=== PATIENT | female | born 1945 | race Caucasian/White ===

== ENCOUNTER → 2019-02-21 08:55 | Outpatient (CLI) | payer OTHER, SELFPAY ==
--- NOTE | 2019-02-21 | DI.MRI.S_ITS ---
PROCEDURE: MR LUMBAR SPINE WO CON INDICATIONS: LUMBAR REGION RADICULOPATHY TECHNIQUE: Noncontrast sagittal T1 spin echo and T2 fast echo, sagittal STIR, axial T1 and T2 fast spin echo through the lumbar spine. In cases with scoliosis, additional coronal T2 fast spin echo may be performed. COMPARISON: None. FINDINGS: Image quality: Excellent. Alignment and Curvature: Mild dextroconvex scoliotic curvature is seen. Bone Marrow: Marrow is of normal overall signal. No acute vertebral body compression fractures. Spinal Cord: Conus medullaris terminates at the L1 level. Visualized cord demonstrates normal signal and size. Paraspinous Soft Tissues: No paravertebral masses. T12-L1: Normal appearance. L1-L2: Mild to moderate loss of disc height and disc signal are seen. Lisd-bf-vicyqacn disc bulge is seen. There is mild left-sided and no right-sided neural foraminal narrowing seen. No significant central canal narrowing is seen. L2-L3: Mild loss of disc height is seen. Loss of disc signal is seen. Mild to moderate disc bulge is seen. Mild facet joint hypertrophy is seen. No significant neural foraminal narrowing is seen. No significant central canal narrowing is seen. L3-L4: The disc height is well-preserved. Loss of disc signal is seen at this level. Mild to moderate disc bulge is seen. Mild facet joint hypertrophy is seen. No significant neural foraminal or central canal narrowing can be seen. L4-L5: Mild loss of disc height is seen. Loss of disc signal is seen. Fpee-dd-dcuzprxy disc bulge is seen. Pcjp-an-teytxscx facet hypertrophy is seen at this level. No significant neural foraminal narrowing is seen. Mild central canal narrowing is seen. L5-S1: Mild loss of disc height is seen. Loss of disc signal is seen. There is a focal annular fissure seen posteriorly. Mild generalized disc bulge is seen. Moderate facet joint hypertrophy is seen. No neural foraminal narrowing. No central canal narrowing. IMPRESSION: Lumbar spine degenerative changes are seen, which are most prominent at L1-L2. Mild dextroconvex scoliotic curvature is seen. Dictated by: Julio César Samuels M.D. on 02/21/2019 at 10:04 Approved by: Julio César Samuels M.D. on 02/21/2019 at 10:08
== END ==
PROVIDERS: PCP Internal Medicine; Visit Provider Orthopaedic Surgery
DX: M47.26 Other spondylosis with radiculopathy, lumbar region (principal); M41.9 Scoliosis, unspecified
CPT/HCPCS: 72146

== ENCOUNTER 2021-05-11 21:22 | Inpatient (IN) | payer OTHER, SELFPAY ==
[2021-05-11 21:30] VITALS: BMI 22.4
[2021-05-11 21:48] VITALS: BP 148/65; PULSE 74; RESP 18; TEMP 36.2; O2SAT 94
[2021-05-11 23:10] VITALS: BP 120/61; PULSE 62; RESP 18; TEMP 36.3; O2SAT 97
--- NOTE | 2021-05-11 23:51 | PC.NURSE ---
2134- Pt arrived to room 209 from [facility] via cabulance stretcher. Pt was gardening and fell, right hip Fx, Dr Schofield to perform surgery 05/12/2021 @ 0930. Pt significant other, Melanie Finn, should be here in the morning. 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 Arrived with Rt hand 22G IVP, SL and flushing well. Mckeon n place and draining clear yellow urine to gravity. allergy to codeine and macrobid. Pt received 30mg torodol, and 1mg dilaudid @ 1700, 183, and 2029 just prior to leaving . After moving pt to bed, pt with nausea and vomited clear fluid 20mL x2. provided pt with ice watr and saltine crackers per request. Pt to be NPO at midnight. Pt reports PCP Dr. Nhi Handy and has [facility] [employer]. Pt reports comfortable and sleepy. Call light in reach and bed alarm on for safety.
[2021-05-12] VITALS (20 sets, daily range): BP systolic 91–115; BP diastolic 47–92; PULSE 63–74; RESP 12–18; TEMP 36–37.1; O2SAT 91–99
--- NOTE | 2021-05-12 | DI.RAD.S_ITS ---
PROCEDURE: XR HIP W PEL IF DONE RT 2V INDICATIONS: RIGHT HIP FRACTURE TECHNIQUE: 4 operative C-arm images of the right hip acquired. COMPARISON: None. FINDINGS: Serial images demonstrate ORIF of a trochanteric hip fracture. No radiographic evidence of complications. IMPRESSION: Operative imaging utilized during ORIF of a trochanteric hip fracture. Dictated by: Josh Thorne M.D. on 05/12/2021 at 10:52 Approved by: Josh Thorne M.D. on 05/12/2021 at 10:53
[2021-05-12] MEDS: LACTATED RINGERS 1,000 ML 60 ML IV (00:57)
[2021-05-12] MEDS: ONDANSETRON 4 MG/2 ML INJ IV ×2 (01:02→04:59)
[2021-05-12] MEDS: HYDROMORPHONE 1 MG INJ IV ×2 (01:12→04:59)
[2021-05-12] MEDS: SODIUM CHLORIDE 0.9% FLUSH 10 ML IV ×2 (01:13→08:08)
--- NOTE | 2021-05-12 03:12 | P.HP_ITS ---
History of Present Illness History of Present Illness Date Patient Seen: 05/11/21 Time Patient Seen: 21:30 Chief complaint: RT HIP FRACTURE Narrative: Patient is a nesha 75-year-old female Libby Gupta, who presented to [facility] ED for right hip. Patient was up on a 2 step stool (approx 3 feet) working on her lilac-the stool gave way and she fell onto her right hip and right shoulder. She was unable to move her hip and required EMS assistance to get off the ground, had severe pain, and denied numbness or tingling, pain with movement, and was concerned for fracture. Her partner called the ambulance and brought her to the hospital. Patient's pain was not adequately managed with Toradol initially in the ED but did have pain relief with Dilaudid and Zofran. Dr. Schmitz from [facility] ED contacted our hospitalist office and stated that would be had no orthopedic services available over the weekend and had spoken with Dr. Louis who agreed to take her to surgery at [facility]. We accepted the patient and she was transferred. Patient's only medical history is glaucoma, catracts, and lichen planus. She takes Finasteride, hydroxychloroquine, miniocycline for her lichen planus, she also uses unknown drops for her glaucoma. Patient stated that she will not be taking any of her medication while she is in the hospital and that she should be fine to miss a few days. Patient denies chest pain, shortness of breath, nausea, vomiting, abdominal pain, fever, body aches, chills. Patient does complain of right leg pain 7/10. Patient is resting in bed in moderate discomfort, BP 120/61, HR 62, RR 18, sat 97% on room air. Patient's CBC is all within normal limits as is her chemistry panel the exception of a mildly elevated glucose at 1:10 a.m., lipase negative. Right Shoulder xray was negative for fracture. Right hip x-ray demonstrates commuted trochanteric fracture of the right hip with vargus angulation. Patient denies any anticoagulation. 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 Environment Been Physically Hurt or No Threatened By a Person Suicidal Ideation Description None Suicide Plan Description No Plan Tobacco & Substance use: Smoking Status smoked for approximately 6-8 years, quit over 30 years ago alcohol intake 1 cocktail every evening with her partner alcohol intake frequency daily Substance Use Type does not use Meds Home Medications and Allergies Home Medications Medication Instructions Recorded Confirmed Type ascorbate calcium (vitamin C) 500 1 gram PO DAILY tab 11/18/18 05/12/21 History mg tablet cetirizine 10 mg capsule PO cap 11/18/18 11/18/18 History cholecalciferol (vitamin D3) 25 500 unit PO DAILY cap 11/18/18 05/12/21 History mcg (1,000 unit) capsule cranberry 400 mg capsule 400 mg PO DAILY 11/18/18 05/12/21 History hydroxychloroquine 200 mg tablet 200 mg PO Q OTHER DAY tab 11/18/18 05/11/21 History (Plaquenil) vitamins A,C,Q-wssf-wgckmp 7,160 2 tab PO BID 11/18/18 11/18/18 History unit-113 mg-100 unit tablet (PreserVision AREDS) finasteride 5 mg tablet 5 mg PO DAILY 05/11/21 05/11/21 History minocycline 50 mg capsule 50 mg PO BID 05/11/21 05/11/21 History Allergies Allergy/AdvReac Type Severity Reaction Status Date / Time nitrofurantoin Allergy Anaphylaxis Verified 11/18/18 14:25 [From Macrobid] codeine AdvReac difficulty Verified 11/18/18 14:25 waking up Review of Systems Review of Systems Narrative: Patient denies any signs or symptoms other than documented in the HPI Musculoskeletal Comments: Right hip and leg pain right shoulder pain Exam Vital Signs (past 8 hours): - 05/11/21 21:48 05/11/21 23:10 05/12/21 01:05 Temperature 97.1 F L 97.4 F L Pulse Rate 74 62 Respiratory Rate 18 18 Blood Pressure 148/65 H 120/61 Pulse Oximetry 94 97 97 Oxygen Delivery Method Room Air Oxygen Flow Rate 0 Narrative Exam Narrative: General: Patient is delightful a well-developed, well-nourished female in moderate discomfort but in no distress at this time. HEENT: Normocephalic, atraumatic, extraocular muscles intact, oral pharynx is clear and mucous membranes are moist. Neck is supple and symmetric, trachea is midline, no adenopathy, no thyroid enlargement, nontender, no masses palpated. Negative for JVD Chest: Normal AP diameter and contour without kyphoscoliosis, no nasal flaring, retractions, or tachypneic labored Lungs: Auscultation of all lung rao are clear without adventitious sounds, wheezes, rhonchi, or rales. Cardio: S1 & S2 with regular rate and rhythm without murmur, rubs, or gallops, no carotid bruit, no cardiac pulsations present. Abdomen: Soft nontender, negative for organomegaly, or masses. Bowel sounds are present in all 4 quadrants without guarding or rebound, no CVA tenderness. Mckeon in place Musculoskeletal: Right leg is visibly shorter and laterally rotated, radial and pedal pulses are normal. Skin: Warm dry and intact without rashes, ulcerations or petechiae. Neuro: Alert and orientated x3, strength is +5/5 in all extremities, sensation to touch intact, no gross deficits noted of cranial nerves. Psych: Patient has a well-kept appearance, appropriate affect, mental status attitude thought context and judgment are appropriate for age. Assessment & Plan Assessment & Plan narrative: 1. Communated Trochanteric fracture of right hip with vargus angulation, pathologic, secondary to mechanical fall ( off step stool), acute, present on admission -Dr. Louis to consult and take patient to surgery tomorrow morning-he has been notified -patient NPO, vital signs q.4 hours, intake and output monitored Q shift, weight measure daily, fluids: LR at 60 cc/hr -Mckeon in place -patient on bedrest, reposition q.2 hours for comfort -manage patient's pain. 2. Malnourished as evidence by BMI of 22.4, acute on chronic present on admission -will order dietary consult. 3. Lichen planus, chronic, present on admission -patient has decided to abstain from her medications during hospitalization- Finasteride, hydroxychloroquine. miniocycline. Code status: Full code Surrogate decision maker: Partner Duarte Capone COVID PCR: Negative Pfizer COVID vaccine: Complete 2020 DVT/VTE prophylaxis: SCD only on the left leg, medication contraindicated due to surgery Expected length of stay: Longer than 2 midnight Scores GCS [place] coma scale eye opening: Spontaneous Joo coma scale verbal response: Orientated Joo coma scale motor response: Obey commands [place] coma scale total score: 15 Wells' Criteria for PE Clinical signs and symptoms of DVT: No PE is #1 Dx or equally likely: No Heart rate > 100: No Immobilization at least 3 days or surg in previous 4 weeks: No History of PE or DVT: No Hemoptysis: No Malignancy w/Treatment within 6 months or palliative: No Wells' PE Score total: 0 Quality VTE Deep Vein Thrombosis/Pulmonary Embolism Present on Admission: No MIPS - Admit I confirm the patient?s Advance Care Plan is present, Code status is documented, Surrogate decision maker is in patient?s record [If Yes, STOP here]: Yes
[2021-05-12 05:28] LABS: Add Manual Diff / Slide Review NO; Basophils Absolute Auto 0 /uL (0-100); Basophils Percent Auto 0.5 % (0-2); Eosinophils Absolute Auto 0 /uL (0-450); Hemoglobin 11.2 g/dL (12.0-16.0); Lymphocytes Absolute Auto 800 /uL (1100-4500); Lymphocytes Percent Auto 9.3 % (25-40); Mean Corpuscular HGB Conc 32.9 % (30-36); Mean Corpuscular Hemoglobin 29.7 PG (26-34); Mean Corpuscular Volume 90.2 fL (80-100); Monocytes Absolute Auto 800 /uL (0-900); Monocytes Percent Auto 9.6 % (3-14); Neutrophils Absolute Auto 6600 /uL (1500-7000); Neutrophils Percent Auto 80.6 % (50-75); Platelet Count 134 X10^3/uL (150-400); Red Blood Cell Count 3.77 X10^6/uL (4.0-5.2); White Blood Cell Count 8.1 X10^3/uL (4.5-11.0)
[2021-05-12 05:44] LABS: COVID19 - ADMIT (NP swab/PCR) Negative (Negative)
[2021-05-12 05:49] LABS: INR 1.2 (0.9-1.3); Prothrombin Time 13.1 SECONDS (10.1-12.7)
[2021-05-12 05:53] LABS: Alanine Aminotransferase 18 IU/L (<35); Albumin 3.2 g/dL (3.5-5.0); Albumin Globulin Ratio 1.2 (1.0-2.8); Alkaline Phosphatase 51 U/L (38-126); Aspartate Aminotransferase 26 IU/L (14-36); Bilirubin Total 0.6 mg/dL (0.2-1.3); Blood Urea Nitrogen 20 mg/dL (7-17); Calcium 8.8 mg/dL (8.4-10.2); Carbon Dioxide 25 mmol/L (22-32); Chloride 109 mmol/L (98-107); Estimated Glomerular Filt Rate > 60.0 mL/min (>60); Globulin 2.7 g/dL (1.7-4.1); Glucose 126 mg/dL (80-110); HEMOLYSIS < 15 (0-50); Potassium 4.4 mmol/L (3.4-5.1); Sodium 138 mmol/L (137-145); Total Protein 5.9 g/dL (6.3-8.2)
--- NOTE | 2021-05-12 07:26 | PM.PN.1 ---
Subjective Subjective Date Patient Seen: 05/12/21 Interval history: She explains to me that she was standing on a stepstool in her yard trimming her Lilac bushes when the stool became unsteady and fell, taking her down with it. Her CBC and BMP are normal. She is pending surgery this morning with Dr. Schofield. She has no significant medical history or medical problems besides her systemic medicine for Lichen Planus. Exam Vital Signs (past 8 hours): - 05/12/21 01:05 05/12/21 03:59 05/12/21 05:00 Temperature 97.1 F L Pulse Rate 64 Respiratory Rate 18 Blood Pressure 104/47 L Pulse Oximetry 97 96 96 Oxygen Delivery Method Room Air Oxygen Flow Rate 0 Narrative Exam Narrative: she is alert and oriented x3. She is in no apparent distress. Heart is regular rate and rhythm without murmur Lungs are clear to auscultation bilaterally Extremities have no ankle edema Leg length is symmetric There is mild tenderness on the Right lateral upper hip. Objective Labs Result Diagrams: 05/12/21 05:15 05/12/21 05:15 Labs: Laboratory Results - last 24 hr 05/12/21 05/12/21 05/12/21 04:35 05:15 05:15 WBC 8.1 RBC 3.77 L Hgb 11.2 L Hct 34.0 L MCV 90.2 MCH 29.7 MCHC 32.9 RDW 14.0 Plt Count 134 L Neut % (Auto) 80.6 H Lymph % (Auto) 9.3 L [place] % (Auto) 9.6 Eos % (Auto) 0.0 L Baso % (Auto) 0.5 Neut # (Auto) 6600 Lymph # (Auto) 800 L [place] # (Auto) 800 Eos # (Auto) 0 Baso # (Auto) 0 PT 13.1 H INR 1.2 Sodium Potassium Chloride Carbon Dioxide BUN Creatinine Estimated GFR BUN/Creatinine Ratio Glucose Calcium Total Bilirubin AST ALT Alkaline Phosphatase Total Protein Albumin Globulin Albumin/Globulin Ratio SARS-CoV-2 (PCR) Negative 05/12/21 05:15 WBC RBC Hgb Hct MCV MCH MCHC RDW Plt Count Neut % (Auto) Lymph % (Auto) [place] % (Auto) Eos % (Auto) Baso % (Auto) Neut # (Auto) Lymph # (Auto) [place] # (Auto) Eos # (Auto) Baso # (Auto) PT INR Sodium 138 Potassium 4.4 Chloride 109 H Carbon Dioxide 25 BUN 20 H Creatinine 0.87 Estimated GFR > 60.0 BUN/Creatinine Ratio 23.0 H Glucose 126 H Calcium 8.8 Total Bilirubin 0.6 AST 26 ALT 18 Alkaline Phosphatase 51 Total Protein 5.9 L Albumin 3.2 L Globulin 2.7 Albumin/Globulin Ratio 1.2 SARS-CoV-2 (PCR) [facility] Medical History Glaucoma Lichen planopilaris Macular degeneration Surgical History History of left cataract surgery History of partial hysterectomy Family History Sister Diabetes mellitus Mother Stroke Hypertension Father Stroke Cancer Glaucoma Social History marital status: household members: significant other occupational status: previously employed Smoking Status: Never smoker alcohol intake: current substance use type: does not use Assessment & Plan Assessment & Plan narrative: 1. Communated Trochanteric fracture of right hip with vargus angulation, pathologic, secondary to mechanical fall ( off step stool), acute, present on admission -Dr. Schofield will repair the fracture or replace the right hip today -patient NPO, vital signs q.4 hours, intake and output monitored Q shift, weight measure daily, fluids: LR at 60 cc/hr -Mckeon in place -patient on bedrest, reposition q.2 hours for comfort -manage patient's pain. 2. Malnourished as evidence by BMI of 22.4, acute on chronic present on admission -dietary consult. 3. Lichen planus, chronic, present on admission -patient has decided to abstain from her medications during hospitalization-Finasteride, hydroxychloroquine, Minocycline. Code status: Full code Surrogate decision maker: Partner Melanie Capone COVID PCR: Negative Pfizer COVID vaccine: Complete 2020 DVT/VTE prophylaxis: SCD only on the left leg, medication contraindicated due to surgery Quality VTE Deep Vein Thrombosis/Pulmonary Embolism Present on Admission: No
--- NOTE | 2021-05-12 07:42 | PC.NURSE ---
Addendum entered by Ness Trevizo R.N. 05/12/21 15:06: Patient continues to rest with eyes closed, breathing unlabored. Taking sips of water intermittently. RA at this time, 93%. Addendum entered by Ness Trevizo R.N. 05/12/21 13:27: Patient sleeping, placed on 1L to maintain O2 above 90%. Addendum entered by Ness Trevizo R.N. 05/12/21 13:11: Patient returned to floor on RA, 98%, endorses pain 8/10, VSS, breathing unlabored and WNL. Dressing CDI on R hip. LR infusing at 125 cc/hr. Patient taking sips of water and jello. Tolerating. Meeks patent and draining clear, yellow urine. SCD's on bilaterally. IS bedside and patient instructions given on use. Call light in reach patient instructed to call before getting OOB. Partner, Melanie remains bedside. Original Note: Patient resting in bed, A/O x 3. Offered to reposition, patient refused. LR @ 60cc/hr infusing in R hand. Patient denies needing pain medication at this time. RA, lungs CTA, meeks patent, draining dark, clear, yellow urine. Last known intake 05/11 @ 1200, last PO fluid 05/12 @0000. Undergarments removed. VSS. Consent on bedside table. Glasses and jewelry given to Melanie yesterday before arrival to . Call light in reach. Patient denies needs at this time.
[2021-05-12] MEDS: DORZOLAMIDE/TIMOLOL OPHTH 10 ML 1 DROPS EYE-BOTH ×2 (08:02→20:34)
[2021-05-12] MEDS: PANTOPRAZOLE 40 MG VIAL IV (08:06)
--- NOTE | 2021-05-12 08:31 | PT-IP ANOTE ---
PT order received. PT reviews chart and notes that pt was transferred from [facility] after fall and concern for right hip fracture. Initial doctor's note is only just now being written, there is an order for NPO and no diagnostics in the chart. Unsure what medical plan is or if pt is a surgical candidate. Will currently hold PT until clearer orthopedic assessment and plan is made. Thank you.
[2021-05-12] MEDS: GABAPENTIN 300 MG CAPSULE PO (09:47)
[2021-05-12] MEDS: ACETAMINOPHEN 325 MG TABLET 650 MG PO (09:48)
--- NOTE | 2021-05-12 09:53 | PM.CN ---
History of Present Illness Consult details Date Patient Seen: 05/12/21 Time Patient Seen: 09:54 Chief complaint: RT HIP FRACTURE Reason for consult: fall and hip pain Requesting provider: Marguerite Grewal Narrative: Ms. Gupta is a 75 yo F with hx of fall yesterday from a step stool and sustained a right femur intertrochanteric fracture. She was seen and worked up at [facility]. They do not have orthopedic service in place. I was contacted and reviewed her x-ray. Patient was transferred to for direct admit and surgery treatment. Meds Home Medications and Allergies Home Medications Medication Instructions Recorded Confirmed Type ascorbate calcium (vitamin C) 500 1 gram PO DAILY tab 11/18/18 05/12/21 History mg tablet cetirizine 10 mg capsule (Zyrtec) 10 mg PO DAILY cap 11/18/18 05/12/21 History cholecalciferol (vitamin D3) 25 500 unit PO DAILY cap 11/18/18 05/12/21 History mcg (1,000 unit) capsule cranberry 400 mg capsule 400 mg PO DAILY 11/18/18 05/12/21 History hydroxychloroquine 200 mg tablet 200 mg PO Q OTHER DAY tab 11/18/18 05/11/21 History (Plaquenil) vitamins A,C,Z-npqx-ykffae 7,160 2 tab PO BID 11/18/18 05/12/21 History unit-113 mg-100 unit tablet (PreserVision AREDS) finasteride 5 mg tablet 5 mg PO DAILY 05/11/21 05/11/21 History minocycline 50 mg capsule 50 mg PO BID 05/11/21 05/11/21 History dorzolamide 22.3 mg-timolol 6.8 1 drp EYE-BOTH BID 05/12/21 05/12/21 History mg/mL eye drops (Cosopt) Allergies Allergy/AdvReac Type Severity Reaction Status Date / Time nitrofurantoin Allergy Anaphylaxis Verified 11/18/18 14:25 [From Macrobid] codeine AdvReac difficulty Verified 11/18/18 14:25 waking up Review of Systems Review of Systems ROS: Yes All systems reviewed with the patient and are negative except as otherwise documented Exam Vital Signs (past 8 hours): - 05/12/21 03:59 05/12/21 05:00 05/12/21 08:00 Temperature 97.1 F L 98.5 F Pulse Rate 64 63 Respiratory Rate 18 17 Blood Pressure 104/47 L 100/53 L Pulse Oximetry 96 96 96 05/12/21 08:34 Temperature Pulse Rate 64 Respiratory Rate 16 Blood Pressure Pulse Oximetry 96 Oxygen Delivery Method Room Air Oxygen Flow Rate 0 Neuro General: patient alert, patient awake and patient oriented x3 Extrem Right lower extremity: hip/thigh (Mild swelling to right hip, pain with examiniation and palpation) Objective ECG Impression: Right femur intertrochanteric fracture mildly displaced and angulated. Labs Result Diagrams: 05/12/21 05:15 05/12/21 05:15 Labs: Laboratory Results - last 24 hr 05/12/21 05/12/21 05/12/21 04:35 05:15 05:15 WBC 8.1 RBC 3.77 L Hgb 11.2 L Hct 34.0 L MCV 90.2 MCH 29.7 MCHC 32.9 RDW 14.0 Plt Count 134 L Neut % (Auto) 80.6 H Lymph % (Auto) 9.3 L [place] % (Auto) 9.6 Eos % (Auto) 0.0 L Baso % (Auto) 0.5 Neut # (Auto) 6600 Lymph # (Auto) 800 L [place] # (Auto) 800 Eos # (Auto) 0 Baso # (Auto) 0 PT 13.1 H INR 1.2 Sodium Potassium Chloride Carbon Dioxide BUN Creatinine Estimated GFR BUN/Creatinine Ratio Glucose Calcium Total Bilirubin AST ALT Alkaline Phosphatase Total Protein Albumin Globulin Albumin/Globulin Ratio SARS-CoV-2 (PCR) Negative 05/12/21 05:15 WBC RBC Hgb Hct MCV MCH MCHC RDW Plt Count Neut % (Auto) Lymph % (Auto) [place] % (Auto) Eos % (Auto) Baso % (Auto) Neut # (Auto) Lymph # (Auto) [place] # (Auto) Eos # (Auto) Baso # (Auto) PT INR Sodium 138 Potassium 4.4 Chloride 109 H Carbon Dioxide 25 BUN 20 H Creatinine 0.87 Estimated GFR > 60.0 BUN/Creatinine Ratio 23.0 H Glucose 126 H Calcium 8.8 Total Bilirubin 0.6 AST 26 ALT 18 Alkaline Phosphatase 51 Total Protein 5.9 L Albumin 3.2 L Globulin 2.7 Albumin/Globulin Ratio 1.2 SARS-CoV-2 (PCR) Assessment & Plan Assessment & Plan narrative: Angulated and mildly displaced right femur IT fx. After discussing risks and benefits of treatment options, patient elected to proceed with surgery. Risks for surgery include but not limited to bleeding, infection, nerve/blood vessel injury, fracture, and even .
[2021-05-12] MEDS: CEFAZOLIN 1 GM VIAL IV ×2 (10:15→18:39)
--- NOTE | 2021-05-12 10:38 | SUR.OPER ---
Supine on padded Hurley table with right leg secured in padded positioning boots and suspended in positioning spar, left well leg in gel paddedwell leg carranza, secured with kerlix roll. Head on one pillow. Arm on non-operative side secured on padded armboard <90 degrees abduction. Arm on operative side padded and resting across chest then secured with tape over sheet. Padded perineal post in place per surgeon.
--- NOTE | 2021-05-12 11:51 | P.OP_ITS ---
Operative Date/Time/Diagnoses Date of procedure: 05/12/21 Time of procedure: 10:19 Pre-op diagnosis: 1. Right femur intertrochanteric fracture Post-op diagnosis: same Procedure & Clinicians Procedure: 1. Right femur open reduction internal fixation with intramedullary nailing Same procedure as scheduled: Yes Indications: Ms. Gupta is a 75 yo F who fell yesterday and sustained displaced and angulated right femur intertrochanteric fracture. Informed consent was obtained and patient was taken to the OR for surgical treatment. Surgeon: Ana Maria Schofield Click Yes if Unassisted: Yes Anesthesia Type: General Operative Notes Closure Type: primary Specimen(s): none sent Prosthetic devices, grafts, tissues, transplants, or devices: [employer] Trigen Intertan nail and lag screw Applied: catheter Estimated Blood Loss (mL): 100 Blood products transfused: none Procedure in detail: Patient was seen in the preoperative area. Risks and benefits of the surgery was discussed with the patient. Informed consent was obtained from the patient and placed in the chart. Surgical site was marked. Patient was taken to the operative room. General anesthesia was administered. Prophylactic antibiotic was given to the patient less than 30 min before the incision was made. Patient was placed into a supine position on the fracture table. Patient's hip was then prepped and draped in the sterile fashion. Time- out was performed at this time. Using the fracture table, a closed reduction maneuver was performed to the right proximal femur fracture. This was done by distracting internally rotating and adducting the right hip. After the fracture reduction was completed and confirmed with AP and lateral C-arm imaging, Patient's hip was then prepped and draped in the sterile fashion. A 3 in incision just proximal to the greater trochanter was made on the lateral aspect of the patient's hip. Starting guidewire was inserted through the incision onto the greater trochanter. The guidewire was driven into the intramedullary canal and confirmed with AP and lateral C-arm imaging. The canal opening Reamer was used to open the canal from the proximal to distal fashion. Canal Reamer was used to open the proximal canal due to the tightness with initial short nail insertion. A 10 mm 125 degree nail was assembled on the back table and inserted into the mid intramedullary canal from a proximal distal fashion. The lateral targeting guide was used to place the cephalomedullary device by placing a lateral incision after targeting guide was used to measure the location of the incision. The fascia was incised in line with skin incision the targeting guide was inserted and docked onto the lateral aspect of the lateral cortex of the proximal femur and a guidewire was drilled through the lateral cortex into the femoral head through the femoral neck in the center location on both AP and lateral imaging. Depth gauge was used to measure the length of the cephalomedullary device a 90 mm cephalomedullary piece was chosen and placed through the lateral cortex into the femoral head through the IM nail. A distal locking screw was then placed using the same targeting guide after drilling in bicortical fashion. Depth gauge was used to measure the length. 30 mm screw was inserted. After all the hardware was placed, AP and lateral C-arm imaging was used to confirm placement of the hardware and reduction of the fracture. Good placement of the hardware and good reduction of the fracture was confirmed. The wound was then irrigated with sterile normal saline. The deep fascia was closed with 1-0 Vicryl, subcutaneous tissue was closed with 2-0 Vicryl and skin was closed with skin gilbert. Sterile dressing was applied the patient's skin and patient was woken up from sedation and transferred to recovery room stable condition. Patient has good fracture reduction with excellent good bone quality with good purchase. Patient will be allowed to weightbear as tolerated starting today. Complications: none Post-operative Condition: stable Disposition: PACU Plan for aftercare: Admit to inpatient hospital
[2021-05-12] MEDS: fentaNYL 100 MCG/2 ML INJ IV (12:00)
[2021-05-12] MEDS: OXYCODONE IR 5 MG TABLET PO ×3 (12:02→18:34)
--- NOTE | 2021-05-12 12:15 | SUR.PHASEI ---
Pt received to PACU after general anesthesia. Airway patent, self maintained. Report from MARTÍN Gates and Dr Dutta.
--- NOTE | 2021-05-12 12:22 | SUR.PHASEI ---
Pt noted sensitive to IV fentanyl. Resp rate 7-8 after dose. Currently back up to 12 with O2 sats 98% on 1LNC. Will redose will oral narcotic instead of IV.
--- NOTE | 2021-05-12 13:09 | PT-IP ANOTE ---
Pt underwent right LE ORIF with intramedullary nailing at 1019 this morning. She is WBAT. Will initiate PT eval at a later time today or next date.
[2021-05-12] MEDS: LACTATED RINGERS 1,000 ML 125 ML IV ×2 (13:26→16:39)
--- NOTE | 2021-05-12 15:57 | CM.DANOTE ---
DCP ASSESSMENT: Patient is a 75 year-old female admitted for a right hip fracture and surgical intervention: Right femur open reduction internal fixation with intramedullary nailing. PCP is Nhi Handy. Primary payer is [facility] and self-pay. Attempted to see patient this date however, she was in surgery. PLAN: CM Team to complete intake assessment tomorrow 05/13/21. TYLER Romano MSW Student Discharge Planning/Care Management CM Discharge Assessment Start: 05/12/21 15:05 Freq: Status: Active Protocol: Document 05/12/21 15:05 AL (Rec: 05/12/21 15:08 AL [id number]) Discharge Planning Assessment Assigned [employer]ude [employer] Driver TYLER Byers Student Contact Information Melanie Finn, life partner Advance Directives? No History Provided By Medical Record Has Patient been admitted in last 30 No days? Prior Living Arrangements House Household Members significant other Independent with ADL's Yes Caregiver for Another No Patient/Family Preference OP PT Therapy Barriers to Discharge No Discharge Plan Home Transportation Arrangement Partner Melanie Finn can provide transporation at time of D/C Whiteboard Updated in Patient Room with No name and ext. 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
[2021-05-12] MEDS: HYDROMORPHONE 0.5 MG INJ 0.2 MG IV (18:33)
--- NOTE | 2021-05-12 23:48 | PC.NURSE ---
A&Ox3. VSS throughout shift. Weaned to room air. Pain well-controlled. CMS intact. Mckeon catheter. Pt. not OOB post-op, repositioning self slightly in bed.
[2021-05-13] VITALS (9 sets, daily range): BP systolic 102–123; BP diastolic 37–59; PULSE 67–98; RESP 16–18; TEMP 36.6–37.9; O2SAT 88–98
[2021-05-13] MEDS: OXYCODONE IR 5 MG TABLET PO ×4 (00:12→12:57)
[2021-05-13] MEDS: LACTATED RINGERS 1,000 ML 125 ML IV (00:15)
[2021-05-13] MEDS: CEFAZOLIN 1 GM VIAL IV (02:04)
--- NOTE | 2021-05-13 02:47 | PC.NURSE ---
Patient alert and oriented. Breath sounds CTA with RA sat of 93%. HRR but has low BP of 99/62; has trended low and is asymptomatic. Denied nausea. BT present and is passing flatus. Indwelling catheter is patent; urine is light, clear yellow. Is able to move self in bed but wanting to remain on clarke. Has not yet been out of bed following surgery so gait not assessed at this time. Dressing to right lateral thigh/hip is CDI. Did complain of 6/10 pain and was medicated with Oxycodone with pain decreasing to 2/10; ice pack also applied. CMS is intact except is able to lift leg only slightly off bed. GARLAND stockings applied per MD order along with bilateral calf SCD's. Fall risk scores is high and bed alarm is activated.
[2021-05-13 05:34] LABS: Add Manual Diff / Slide Review NO; Basophils Absolute Auto 0 /uL (0-100); Basophils Percent Auto 0.2 % (0-2); Eosinophils Absolute Auto 0 /uL (0-450); Eosinophils Percent Auto 0.1 % (2-4); Hematocrit 30.9 % (36-46); Hemoglobin 10.1 g/dL (12.0-16.0); Lymphocytes Absolute Auto 700 /uL (1100-4500); Lymphocytes Percent Auto 7.4 % (25-40); Mean Corpuscular HGB Conc 32.8 % (30-36); Mean Corpuscular Hemoglobin 29.6 PG (26-34); Mean Corpuscular Volume 90.3 fL (80-100); Monocytes Absolute Auto 1000 /uL (0-900); Monocytes Percent Auto 10.3 % (3-14); Neutrophils Absolute Auto 8000 /uL (1500-7000); Platelet Count 103 X10^3/uL (150-400); Red Blood Cell Count 3.42 X10^6/uL (4.0-5.2); Red Cell Distribution Width 13.5 % (11.6-14.8); White Blood Cell Count 9.8 X10^3/uL (4.5-11.0)
--- NOTE | 2021-05-13 07:32 | P.PN_ITS ---
Subjective Subjective Interval history: She had a successful right hip IM nailing yesterday and says she only has a small ache in the right hip now. We discussed her lichen planus which for her is symptomatic with a rash on her scalp and hair loss. That is why she is on the finasteride. She had previously been on a higher dose of Hydroxychloroquine until that started worsening her glaucoma and so was cut back to every other day. She is pending physical therapy evaluation for recommendation on placement. Her hemoglobin is 10.1, which will be rechecked tomorrow. Her Mckeon catheter will be removed today. Exam Vital Signs (past 8 hours): - 05/13/21 05:00 Temperature 97.9 F Pulse Rate 67 Respiratory Rate 18 Blood Pressure 103/59 L Pulse Oximetry 90 L Oxygen Delivery Method Room Air Oxygen Flow Rate 0 Narrative Exam Narrative: She is alert and oriented x3. No apparent distress. Very pleasant and cooperative Heart is regular rate and rhythm without murmur Lungs are clear to auscultation bilaterally Extremities have no ankle edema. The right hip was just examined by Orthopedics before my visit. The scalp rash is barely visible. Objective Labs Result Diagrams: 05/13/21 05:10 05/12/21 05:15 Labs: Laboratory Results - last 24 hr 05/13/21 05:10 WBC 9.8 RBC 3.42 L Hgb 10.1 L Hct 30.9 L MCV 90.3 MCH 29.6 MCHC 32.8 RDW 13.5 Plt Count 103 L Neut % (Auto) 82.0 H Lymph % (Auto) 7.4 L [place] % (Auto) 10.3 Eos % (Auto) 0.1 L Baso % (Auto) 0.2 Neut # (Auto) 8000 H Lymph # (Auto) 700 L [place] # (Auto) 1000 H Eos # (Auto) 0 Baso # (Auto) 0 PFSH Medical History Glaucoma Lichen planopilaris Macular degeneration Surgical History History of left cataract surgery History of partial hysterectomy Family History Sister Diabetes mellitus Mother Stroke Hypertension Father Stroke Cancer Glaucoma Social History marital status: household members: significant other occupational status: previously employed Smoking Status: Never smoker alcohol intake: current substance use type: does not use Assessment & Plan Assessment & Plan narrative: 1. Comminuted Trochanteric fracture of right hip with vargus angulation, pathologic, secondary to mechanical fall (off step stool in her yard), acute, present on admission -Dr. Schofield did an ORIF IM nail on 05/12/21 -Mckeon out today -PT eval and rec for placement pending -manage pain. 2. Mild malnourishment with Albumin of 3.2, acute on chronic present on admission -dietary consult. 3. Lichen planus scalp rash causing hair loss, chronic, present on admission -patient has decided to abstain from her medications during hospitalization- Finasteride, hydroxychloroquine, Minocycline. Code status: Full code Surrogate decision maker: Partner Melanie Capone DVT/VTE prophylaxis: SCD only on the left leg, medication contraindicated due to recent surgery Quality VTE Deep Vein Thrombosis/Pulmonary Embolism Present on Admission: No
[2021-05-13] MEDS: ASCORBIC ACID 500 MG TABLET 1000 MG PO (09:14)
[2021-05-13] MEDS: LORATADINE 10 MG TABLET PO (09:16)
[2021-05-13] MEDS: CHOLECALCIFEROL (VITAMIN D3) 1,000 UNIT TABLET 500 UNIT PO (09:16)
[2021-05-13] MEDS: DORZOLAMIDE/TIMOLOL OPHTH 10 ML 1 DROPS EYE-BOTH ×2 (09:16→20:05)
[2021-05-13] MEDS: FINASTERIDE 5 MG TABLET PO (09:16)
--- NOTE | 2021-05-13 10:04 | PM.PN.1 ---
Exam Vital Signs (past 8 hours): - 05/13/21 05:00 05/13/21 08:00 05/13/21 08:06 Temperature 97.9 F 98.6 F Pulse Rate 67 67 69 Respiratory Rate 18 16 16 Blood Pressure 103/59 L 104/59 L Pulse Oximetry 90 L 98 96 Oxygen Delivery Method Room Air Oxygen Flow Rate 0 Objective Labs Result Diagrams: 05/13/21 05:10 05/12/21 05:15 Labs: Laboratory Results - last 24 hr 05/13/21 05:10 WBC 9.8 RBC 3.42 L Hgb 10.1 L Hct 30.9 L MCV 90.3 MCH 29.6 MCHC 32.8 RDW 13.5 Plt Count 103 L Neut % (Auto) 82.0 H Lymph % (Auto) 7.4 L [place] % (Auto) 10.3 Eos % (Auto) 0.1 L Baso % (Auto) 0.2 Neut # (Auto) 8000 H Lymph # (Auto) 700 L [place] # (Auto) 1000 H Eos # (Auto) 0 Baso # (Auto) 0 PFSH Medical History Glaucoma Lichen planopilaris Macular degeneration Surgical History History of left cataract surgery History of partial hysterectomy Family History Sister Diabetes mellitus Mother Stroke Hypertension Father Stroke Cancer Glaucoma Social History marital status: household members: significant other occupational status: previously employed Smoking Status: Never smoker alcohol intake: current substance use type: does not use Assessment & Plan Assessment & Plan narrative: POD#1 s/p right hip ORIF for femur IT fx. Patient doing well pain well controlled. RLE dressing clean and dry and neurovascularly intact. No S/s of DVT. Will d/c to home after PT today. Quality VTE Deep Vein Thrombosis/Pulmonary Embolism Present on Admission: No
--- NOTE | 2021-05-13 11:38 | OT.IP.EVAL ---
Current Diagnoses Fracture of unspecified part of neck of right femur, initial encounter for closed fracture (05/11/21) Surgery Performed Operation Date: 05/12/21 09:30 Actual Procedures p Intramedullary Nailing Femur(Right) - Ana Maria Schofield MD Past Medical History (Last Reviewed 05/12/21 @ 09:56 by Ana Maria Schofield MD) Glaucoma History of left cataract surgery History of partial hysterectomy Lichen planopilaris Macular degeneration Surgical History (Last Reviewed 05/12/21 @ 09:56 by Ana Maria Schofield MD) History of left cataract surgery History of partial hysterectomy Occupational Therapy Inpatient Evaluation/Re-Eval M1 PT/OT-IP Prior Functional Status Start: 05/12/21 08:26 Freq: Status: Active Protocol: Document 05/13/21 13:05 CGR (Rec: 05/13/21 13:28 R [id number]) Medical Review Prior Functional Status Medical History Reviewed Yes Communication Pt is an effective verbal communicator. Mobility and Gait Pt was IND in all mobility prior to admit. Activities of Daily Living and IADL's Pt was IND in ADLs prior to admit. Social History Household Members significant other Living Arrangements House Number of Floors (Floors) Two Floors Number of Stairs To Enter/Railing? Pt has 2 steps to enter and a flight to get to the bedroom and full bathroom. Pt has a half bath on the first floor. 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 Mobility and Gait Pt was IND in all mobility prior to admit. Activities of Daily Living and IADL's Pt was IND in ADLs prior to admit. Social History Household Members significant other Living Arrangements House Number of Floors (Floors) Two Floors Number of Stairs To Enter/Railing? Pt has 2 steps to enter and a flight to get to the bedroom and full bathroom. Pt has a half bath on the first floor. 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 Diagnosis Onset Date 05/11/21 Weight Bearing Status Weight Bearing Status Weight Bear as Tolerated M3 OT- IP Subjective and Pain Start: 05/13/21 13:04 Freq: Status: Active Protocol: Document 05/13/21 13:05 CGR (Rec: 05/13/21 13:28 R [id number]) OT- Subjective Occupational Therapy Visit Type Type Initial Evaluation Visit Start Time 11:00 Visit Stop Time 11:38 Total Visit Minutes 38 Notes Co-treat with P.T. OT Pain Assessment Pain When Pain Assessed During Mobility Pain Present Pain Present Pain Reported Location Right Hip Intensity 8 Scale Used Numeric (0 - 10) Management Techniques Modification of Treatment,Re- positioning,Timing of Activity with Medications M4 OT- IP ADL's Start: 05/13/21 13:04 Freq: Status: Active Protocol: Document 05/13/21 13:05 CGR (Rec: 05/13/21 13:28 R [id number]) OT [id number] Comments OT Self-Feeding Comments Not meal time OT ADL-Grooming General Evaluation Grooming Ability Standby Assistance Areas Needing Assistance Face Washing Comments OT Grooming Comments set up in bed at end of session. OT ADL-Oral Care Comments Oral Care Comments not performed OT ADL-Dressing General Eval Lower Body Dressing Ability Total Assistance Areas Needing Assistance Socks OT ADL-Toileting General Evaluation Toileting Ability Total Assistance Comments OT Toileting Comments Pt with jeanna OT ADL-Bathing Comments OT Bathing Comments Not performed M5 OT- IP IADL's Start: 05/13/21 13:04 Freq: Status: Active Protocol: Document 05/13/21 13:05 CGR (Rec: 05/13/21 13:28 CGR [id number]) OT-Instrumental Activities of Daily Living Deficits IADL Deficits Identified No Deficits Home Safety Awareness Awareness of Need for Assistance at Home Good Awareness Ability to Problem Solve Emergency Able to Problem Solve Situations Medication Management Medication Management No Deficits Identified Money Management Money Management No Deficits Identified Meal Preparation Meal Preparation Caregiver Provides Assist Carbon Lamp Cleaner Carbon Lamp Cleaner Caregiver Provides Assist Driving Driving Comments 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 Pt understands that she will need to be cleared by her doctor before driving. M6 OT- IP Functional Cognition Start: 05/13/21 13:04 Freq: Status: Active Protocol: Document 05/13/21 13:05 CGR (Rec: 05/13/21 13:28 CGR [id number]) Cognitive Factors Limiting Selfcare Function Cognitive Ability Level of Alertness Alert Patient Orientation Name,Age,Birthday,Month,Date, Year,Day of Week,Place, Situation Attention Span Ability Capable of Focused Attention, Capable of Sustained Attention Ability to Follow Commands Able to Follow One Step Commands with Increased Time, Able to Follow One Step Commands with Repetition Memory Description No Deficits Noted Safety Awareness No Deficits Noted OT- Vision and Hearing OT- Hearing Assessment OT- Hearing Assessment WFL OT- Vision Assessment Visual Attentiveness WFL Occular Pursuits WFL Visual Convergence WFL M7 OT- IP Mobility and Balance Start: 05/13/21 13:04 Freq: Status: Active Protocol: Document 05/13/21 13:05 CGR (Rec: 05/13/21 13:28 CGR [id number]) OT- Bed Mobility Assessment Rolling Level of Assistance Maximum Assistance,2 Person Assistance Supine to Sit Supine to Sit Assist Maximum Assistance,2 Person Assistance Sit to Supine Sit to Supine Assist Maximum Assistance,2 Person Assistance OT-Transfer Assessment Sit to and From Stand Sit to and from Stand Contact Guard Assistance,2 Person Assistance Technique Transfer Destination Bed Transfer Technique Stand Step Pivot Devices Transfer Assistive Devices Gait Belt,Front Wheeled Walker Comments Mobility Comments Pt stood with CGA x2 d/t fluctuating BP. See P.T. note for BPs. Pt was able to take side steps and returned to bed at end of session. OT- Balance Assessment Sitting Balance and Reactions Static Sitting Balance Ability Good Dynamic Sitting Balance Ability Good M8 OT- IP Objective Assessments Start: 05/13/21 13:04 Freq: Status: Active Protocol: Document 05/13/21 13:05 CGR (Rec: 05/13/21 13:28 CGR [id number]) OT Gross Range of Motion Upper Extremity Range of Motion Assessment Within Functional Limits OT Strength Upper Extremity Strength Assessment Within Functional Limits Comments Strength Comments grossly 4/5 OT- Coordination Assessment Upper Extremity Finger to Nose Test Within Functional Limits Finger Tapping Test Within Functional Limits OT-Muscle Tone Assessment Muscle Tone WNL Yes OT Sensation Assessment Edema Edema Absent M9 OT- IP Assessment and Plan Start: 05/13/21 13:04 Freq: Status: Active Protocol: Document 05/13/21 13:05 CGR (Rec: 05/13/21 13:28 CGR [id number]) OT Summary Assessment and Plan Potential Rehabilitation Potential Good Analytic Complexity at Evaluation Moderate Summary OT Impairments Pain,Balance,Functional Mobility,Grooming,Dressing, Toileting,Bathing,Toilet Transfers,Shower Transfers, Activity Tolerance Progress Towards Goals Slow Progress due to Pain,Slow Progress due to Medical Issues Assessment Summary Pt presents as a moderate complexity evaluation s/p admit for R hip fx. Pt is now s/p R IM nailing. Pt displayed orthostatic hypotention with this mornings session and was therefore limited on her abilities. Pt has good potential to make significant progress with therapy. Recommendation at this time is for SNF d/t her limited abilities at time of eval. However, pt is likely to progress quickly with the possibility to d/c home with home health. Pt has a flight of stairs to get to bedroom and full bath but said she could stay on the first floor and perform bed baths till she is safe to perform stair transfer. Goals Grooming Goal Independent Dressing Goal Independent Toileting Goal Independent Bathing Goal Independent Toilet Transfer Goal Independent Shower Transfer Goal Independent Days to Meet Goals 5 Frequency of Treatment Frequency Of Treatment Once a Day Treatment Plan OT Treatment Plan ADL Training,Functional Mobility,Patient/Family Education,Discharge Planning Other Treatment Recommendations and Next LB dressing, shower if BP is Treatment Focus steady Discharge Recommendations OT Discharge Recommendations Home with 24/7 Assist Available,SNF Rehab Other Discharge Recommendations SNF if pt does not progress, but pt is likely to progress to home with home health. Transportation Needs at Discharge Wheelchair/Cabulance
--- NOTE | 2021-05-13 13:16 | PT.IIE ---
Current Diagnoses Fracture of unspecified part of neck of right femur, initial encounter for closed fracture (05/11/21) Surgery Performed Operation Date: 05/12/21 09:30 Actual Procedures p Intramedullary Nailing Femur(Right) - Ana Maria Schofield MD Medical History (Last Reviewed 05/12/21 @ 09:56 by Ana Maria Schofield MD) Glaucoma Lichen planopilaris Macular degeneration Physical Therapy Inpatient Evaluation/Re-Eval M1 PT/OT-IP Prior Functional Status Start: 05/12/21 08:26 Freq: Status: Active Protocol: Document 05/13/21 12:32 LRN (Rec: 05/13/21 13:16 LRN [id number]) Medical Review Prior Functional Status Medical History Reviewed Yes Mobility and Gait Independent without assistive device. Activities of Daily Living and IADL's Independent. Social History Household Members significant other Living Arrangements House Number of Floors (Floors) Two Floors Number of Stairs To Enter/Railing? Two. Home Environment High Toilet,Walk in Shower,Tub /Shower Employment Status Retired Additional Social History Comment Lives with partner. M2 PT-IP Current Condition Start: 05/12/21 08:26 Freq: Status: Active Protocol: Document 05/13/21 12:32 LRN (Rec: 05/13/21 13:16 LRN [id number]) Physical Therapy Current Condition Current Condition Evaluation Date 05/13/21 Treatment Diagnosis s/p R hip ORIF for femur IT fracture Onset Date 05/12/21 Weight Bearing Status Weight Bearing Status Weight Bear as Tolerated M3 PT-IP Subjective Start: 05/12/21 08:26 Freq: Status: Active Protocol: Document 05/13/21 12:32 LRN (Rec: 05/13/21 13:16 LRN [id number]) Subjective Physical Therapy Visit Type Type Initial Evaluation Visit Start Time 10:45 Visit Stop Time 11:40 Total Visit Minutes 55 Physical Therapy Visit Comments Patient Comments At rest RLE pain is 4.5/10. Would like to go home, but after therapy does not feel she would be able to tolerate going home today. Patient Goals Home at [place]. Therapy Pain Assessment Pain When Pain Assessed At Rest Pain Present Pain Present Pain Reported Location Right Hip Intensity 4 Scale Used Numeric (0 - 10) Pain Behaviors Calling Out,Facial Grimacing, Guarding Pain Management Techniques Apply Cold M4 PT-IP Mobility and Gait Start: 05/12/21 08:26 Freq: Status: Active Protocol: Document 05/13/21 12:32 LRN (Rec: 05/13/21 13:16 LRN [id number]) PT-Bed Mobility Assessment Supine to Sit Supine to Sit Maximum Assistance,2 Person Assistance Sit to Supine Sit to Supine Maximum Assistance,2 Person Assistance Scooting Scooting to Edge of Bed Minimal Assistance PT-Transfer Assessment Sit to and From Stand Sit to and from Stand Contact Guard Assistance,2 Person Assistance Equipment Transfer Assistive Device Gait Belt,Front Wheeled Walker Comments Mobility Comments Pt c/o light headedness on standing and was not appropriate for sitting up in a chair due to decrease in blood pressure > 20 from resting of systolic and diastolic blood pressure. Gait Assessment Gait Gait Assistance Required: Moderate Assistance,2 Person Assist Distance (Feet) 1 Able to Maintain Weight Bearing Status No During Gait Assistive Devices Assistive Device Gait Belt,Front Wheeled Walker Factors Limiting Gait Function Factors Limiting Gait Function Decreased Activity Tolerance, Pain Stair Climbing Assessment Comments Stair Climbing Comments Not appropriate at this time. PT-Balance Assessment Sitting Balance and Reactions Static Sitting Balance Ability Good Standing Balance and Reactions Static Standing Balance Ability Fair Dynamic Standing Balance Ability Poor M5 PT-IP Objective Assessments Start: 05/12/21 08:26 Freq: Status: Active Protocol: Document 05/13/21 12:32 LRN (Rec: 05/13/21 13:16 LRN [id number]) Orientation Orientation/Cognition Level of Alertness Alert Orientation Name,Age,Day of Week,Place, Situation Language Function Ability No Deficits Noted Safety Awareness Understands Safety Issues Memory Description No Deficits Noted Gross Range of Motion Upper Extremity ROM Assessment Within Functional Limits Lower Extremity ROM Assessment Right Impaired Strength Upper Extremity Strength Assessment Within Functional Limits Lower Extremity Strength Assessment Right Impaired Hip 1 Knee 1 Ankle 4+ Comments Strength Comments R LE strength limited by pain. M6 PT-IP Treatment Start: 05/12/21 08:26 Freq: Status: Active Protocol: Document 05/13/21 12:32 LRN (Rec: 05/13/21 13:16 LRN [id number]) Physical Therapy Treatment Exercises Exercises Ankle Pumps,Gluteal Sets,Quad Sets,Heel Slides,Supine Hip Abduction,Short Arc Quads Education Education Provided Weight Bearing Status Other Treatments Other Treatment Performed Vitals: At rest: BP 107/59, HR 72, SpO2 variable 93% to 98% Sitting: BP 87/66, HR 72, SpO2 vairiabel 91% to 98% After therapy after 8 minute: BP 104/48, HR 71, SpO2 variable 92% to 95% Auto BP was not able to obtain a BP after 2 trial on L arm and 2 x on R arm. M7 PT-IP Assessment and Plan Start: 05/12/21 08:26 Freq: Status: Active Protocol: Document 05/13/21 12:32 LRN (Rec: 05/13/21 13:16 LRN [id number]) PT Summary Assessment and Plan Potential Rehabilitation Potential Good Status of Condition at Evaluation Evolving Summary Impairments Pain,ROM,Strength,Activity Tolerance Assessment Summary Pt is s/p R hip ORIF for femur IT fx. Pt did not tolerate mobilization well due to pain, light headedness, and poor cardiac response to positional changes with drops in blood pressure and inability to obtain immediately a mechanical blood pressure. Pain increased from 4.5/10 to 8-9/10 after therapy. Her blood pressure was low to start (107/59) and pt became light headed and appeared slow with mental processing after sitting at EOB. Pt is very limited with mobility due to pain and poor tolerance to activity. The pt would not be safe to discharge to home at this time. Recommend SNF for rehab due to her poor mobility (level and stairs) and activity tolerance. If pt is able to progress with therapy she has good potential to be able to go home with home health services in 1-3 days. Goals Bed Mobility Goal Contact Guard Assistance, Minimal Assistance Transfer Goal Standby Assistance,Contact Guard Assistance Gait Goal Contact Guard Assistance, Minimal Assistance Gait Distance 150' Other Goals 2 stairs Days to Meet Goals 3 Frequency of Treatment Frequency Of Treatment Twice a Day Treatment Plan Physical Therapy Treatment Plan Bed Mobility Training,Transfer Training,Gait Training, Therapeutic Exercise,Hot or Cold Pack Other Recommendations and Next Treatment Stair training Focus Recommendations To Nursing Amount of Assist Needed 2 Person Assist Discharge Recommendations PT Discharge Recommendations Home Health,SNF Rehab Equipment Needed for Home Before FWW Discharge Transportation Needs at Discharge Wheelchair/Cabulance
[2021-05-13] MEDS: HYDROXYCHLOROQUINE 200 MG TABLET PO (15:04)
--- NOTE | 2021-05-13 16:19 | CM.DPC ---
DCP Continued: Therapies are recommending SNF but, may change to Home with Home Health if patient strength and endurance continue to improve. RAG BALER Student met with patient at bedside she was alert and oriented. Educated patient on role of social work and D/C planning. Patient?s preference is going to a long-term facility for rehabilitation as she has two stairs down to enter the first floor of her house where she has access to a bedroom and a half bath. Patient understands. Patient has no SNF preference. Therefore, [facility] given referral to review. SNF list also provided to patient/family. They will do some research re: additional choices. Faxed [facility] for SNF authorization. PLAN: CM Team to continue to follow patient for D/C planning: SNF vs Home with home health. Home with Home health will be a secondary plan as patient currently does not feel safe returning home and therapies are recommending SNF. Will follow-up with [facility] at [facility] . TYLER Romano MSW Student
--- NOTE | 2021-05-13 16:44 | PT.IPTN ---
Current Diagnoses Fracture of unspecified part of neck of right femur, initial encounter for closed fracture (05/11/21) Surgery Performed Operation Date: 05/12/21 09:30 Actual Procedures p Intramedullary Nailing Femur(Right) - Ana Maria Schofield MD Physical Therapy Treatment Note M2 PT-IP Current Condition Start: 05/12/21 08:26 Freq: Status: Active Protocol: Document 05/13/21 16:16 LRN (Rec: 05/13/21 16:44 LRN [id number]) Physical Therapy Current Condition Current Condition Evaluation Date 05/13/21 Treatment Diagnosis s/p R hip ORIF for femur IT fracture Onset Date 05/12/21 Weight Bearing Status Weight Bearing Status Weight Bear as Tolerated M3 PT-IP Subjective Start: 05/12/21 08:26 Freq: Status: Active Protocol: Document 05/13/21 16:16 LRN (Rec: 05/13/21 16:44 LRN [id number]) Subjective Physical Therapy Visit Type Type Treatment Note Visit Start Time 15:39 Visit Stop Time 16:17 Total Visit Minutes 38 Physical Therapy Visit Comments Patient Comments Back is bother her and is willing to sit in chair. Therapy Pain Assessment Pain When Pain Assessed At Rest Pain Present Pain Present Pain Reported Location Right Hip Intensity 6 Scale Used Numeric (0 - 10) Pain Behaviors Facial Grimacing,Guarding, Moaning Pain Management Techniques Apply Heat M4 PT-IP Mobility and Gait Start: 05/12/21 08:26 Freq: Status: Active Protocol: Document 05/13/21 16:16 LRN (Rec: 05/13/21 16:44 LRN [id number]) PT-Bed Mobility Assessment Supine to Sit Supine to Sit Minimal Assistance,Moderate Assistance,2 Person Assistance Scooting Scooting to Edge of Bed Contact Guard Assistance, Minimal Assistance PT-Transfer Assessment Sit to and From Stand Sit to and from Stand Minimal Assistance,Moderate Assistance,2 Person Assistance Transfers Transfer Destination Chair Transfer Technique Forward/Backward Stepping Transfer Ability Level of Assist Contact Guard Assistance,1 Person Assistance,Use of Upper Extremities Comments Mobility Comments Pt needed much verbal cuing during transfer to chair with forward/backward stepping. Gait Assessment Gait Gait Assistance Required: Minimum Assistance,1 Person Assist Distance (Feet) 4 Assistive Devices Assistive Device Gait Belt,Front Wheeled Walker Gait Deviations General Gait Pattern Antalgic,Decreased Stride Length,Decreased Feet Clearance Comments Gait Comments Pt needed much verbal cuing for stepping. She had 1 person assist and 1 person SBA to foward/backward step from bed to chair. M5 PT-IP Objective Assessments Start: 05/12/21 08:26 Freq: Status: Active Protocol: Document 05/13/21 16:16 LRN (Rec: 05/13/21 16:44 LRN [id number]) Orientation Orientation/Cognition Level of Alertness Alert Orientation Name,Age,Day of Week,Place, Situation Language Function Ability No Deficits Noted Safety Awareness Understands Safety Issues Memory Description No Deficits Noted M6 PT-IP Treatment Start: 05/12/21 08:26 Freq: Status: Active Protocol: Document 05/13/21 16:16 LRN (Rec: 05/13/21 16:44 LRN [id number]) Physical Therapy Treatment Exercises Exercises Ankle Pumps,Gluteal Sets,Quad Sets,Heel Slides,Supine Hip Abduction Education Education Provided Weight Bearing Status Other Treatments Other Treatment Performed Requested nursing issue CP to R incisional area and more water. Vitals (L arm): At rest (sup): BP 104/63, HR 73, Sitting : BP 109/56, HR 87 , Standing: BP 123/36, HR 98, Rest (sit): BP 118/56, HR 75 M7 PT-IP Assessment and Plan Start: 05/12/21 08:26 Freq: Status: Active Protocol: Document 05/13/21 16:16 LRN (Rec: 05/13/21 16:44 LRN [id number]) PT Summary Assessment and Plan Potential Rehabilitation Potential Good Summary Impairments Pain,Strength,Bed Mobility, Transfers,Gait,Activity Tolerance Progress Towards Goals Progressing Toward Goals,Slow Progress due to Pain,Slow Progress due to Activity Tolerance Assessment Summary Pt much improved in mobility and activity tolerance. She was able to move her RLE with less assist and did not get light headed in sit or stand. Pt was able to forward/ backward step with less pain and difficulty. Pt progressing well. Her tolerance to activity is still poor. Goals Bed Mobility Goal Contact Guard Assistance, Minimal Assistance Transfer Goal Standby Assistance,Contact Guard Assistance Gait Goal Contact Guard Assistance, Minimal Assistance Gait Distance 150' Other Goals 2 stairs Days to Meet Goals 3 Frequency of Treatment Frequency Of Treatment Twice a Day Treatment Plan Physical Therapy Treatment Plan Bed Mobility Training,Transfer Training,Gait Training, Therapeutic Exercise,Hot or Cold Pack Other Recommendations and Next Treatment Stair training Focus Recommendations To Nursing Amount of Assist Needed 2 Person Assist Discharge Recommendations PT Discharge Recommendations Home Health,SNF Rehab Equipment Needed for Home Before FWW Discharge Transportation Needs at Discharge Wheelchair/Cabulance
--- NOTE | 2021-05-13 16:56 | PC.NURSE ---
Addendum entered by Nataliia Casiano R.N. 05/13/21 21:31: Satisfactory post op course. Med @ 2029 w/oxy for discomfort w/good relief HL intact/patent Mckeon patent light yellow urine QS. Call light w/in reach, bed alarm on for pt safety. Continue w/plan of care. Original Note: Pt assisted to chair by staff & PT. Tolerated well. Lungs clear, SpO2 96% RA IVF LR @ 125cc/hr infusing inot right hand via pump w/o incidence. Mckeon cath patent light yellow urine. Call light w/in reach, Pt calls appropriately for needs.
[2021-05-14] VITALS (11 sets, daily range): BP systolic 110–1100; BP diastolic 49–63; PULSE 76–90; RESP 14–18; TEMP 36.8–37.6; O2SAT 86–98
--- NOTE | 2021-05-14 01:53 | PC.NURSE ---
Addendum entered by Zuleyka Jansen R.N. 05/14/21 06:05: patient refusing to have catheter removed this morning due to poor mobility in right leg. Informed of risks of leaving catheter but continues to decline. Prompted patient to discuss further with MD this morning. Original Note: Patient is alert and oriented. Breath sounds CTA but RA sat only 86% (noted to have low sat also on previous shift) so placed on oxygen titrating to keep sat > 92% and is currently on 0.5L/min with sat of 95%; denies any chest pain or SOB. HRR. Denied nausea. BT present and is passing flatus. Still with indwelling catheter; evening RN reported patient had mobility issues with PT so catheter not removed as yet. Is able to turn self in bed. Gait not assessed at this time. Dressing to right lateral hip/thigh is CDI. States pain is minimal at 2-3/10 and declines offer of pain medication and/or ice pack. CMS is intact except is still not able to lift leg more than about 1 off bed. Is wearing bilateral calf SCD's + GARLAND stockings. Fall risk score is high and bed alarm is activated.
[2021-05-14 05:48] LABS: Add Manual Diff / Slide Review NO; Basophils Absolute Auto 0 /uL (0-100); Basophils Percent Auto 0.3 % (0-2); Eosinophils Absolute Auto 100 /uL (0-450); Eosinophils Percent Auto 0.8 % (2-4); Hematocrit 29.7 % (36-46); Lymphocytes Absolute Auto 900 /uL (1100-4500); Lymphocytes Percent Auto 9.9 % (25-40); Mean Corpuscular HGB Conc 33.5 % (30-36); Mean Corpuscular Hemoglobin 29.8 PG (26-34); Mean Corpuscular Volume 88.9 fL (80-100); Monocytes Absolute Auto 1100 /uL (0-900); Monocytes Percent Auto 12.1 % (3-14); Neutrophils Absolute Auto 7300 /uL (1500-7000); Neutrophils Percent Auto 76.9 % (50-75); Platelet Count 106 X10^3/uL (150-400); Red Blood Cell Count 3.35 X10^6/uL (4.0-5.2); Red Cell Distribution Width 13.5 % (11.6-14.8); White Blood Cell Count 9.5 X10^3/uL (4.5-11.0)
--- NOTE | 2021-05-14 09:35 | PT.IPTN ---
Current Diagnoses Fracture of unspecified part of neck of right femur, initial encounter for closed fracture (05/11/21) Surgery Performed Operation Date: 05/12/21 09:30 Actual Procedures p Intramedullary Nailing Femur(Right) - Ana Maria Schofield MD Physical Therapy Treatment Note M2 PT-IP Current Condition Start: 05/12/21 08:26 Freq: Status: Active Protocol: Document 05/13/21 16:16 LRN (Rec: 05/13/21 16:44 LRN [id number]) Physical Therapy Current Condition Current Condition Evaluation Date 05/13/21 Treatment Diagnosis s/p R hip ORIF for femur IT fracture Onset Date 05/12/21 Weight Bearing Status Weight Bearing Status Weight Bear as Tolerated M3 PT-IP Subjective Start: 05/12/21 08:26 Freq: Status: Active Protocol: Document 05/14/21 09:35 AB (Rec: 05/14/21 12:49 AB [id number]) Subjective Physical Therapy Visit Type Type Treatment Note Visit Start Time 09:35 Visit Stop Time 10:18 Total Visit Minutes 43 Number of FLAT MACHINE CUTTER Visits 0 Physical Therapy Visit Comments Patient Comments pt is agreeable to do PT Therapy Pain Assessment Pain When Pain Assessed At Rest Pain Present Pain Present Pain Reported Location Right Hip Intensity 4 Scale Used Numeric (0 - 10) Pain Management Techniques Distraction,Modification of Treatment,Re-positioning, Timing of Activity with Medications M4 PT-IP Mobility and Gait Start: 05/12/21 08:26 Freq: Status: Active Protocol: Document 05/14/21 09:35 AB (Rec: 05/14/21 12:49 AB [id number]) PT-Bed Mobility Assessment Supine to Sit Supine to Sit Maximum Assistance,1 Person Assistance,Head of Bed Elevated,Bedrails Scooting Scooting to Edge of Bed Maximum Assistance PT-Transfer Assessment Sit to and From Stand Sit to and from Stand Maximum Assistance,1 Person Assistance,2 Person Assistance ,Use of Upper Extremities Equipment Transfer Assistive Device Gait Belt,Front Wheeled Walker Orthotic/Prosthetic Devices or Brace: No Transfers Transfer Destination Chair Transfer Technique Stand Step Pivot Transfer Ability Level of Assist Maximum Assistance,1 Person Assistance,2 Person Assistance ,Use of Upper Extremities Comments Mobility Comments pt completed supine to sit max A and max cues using bed rail for support. pt was able to sit on EOB CGA. completed sit to stand max A x 1-2 and max cues. completed step transfer to chair using FWW max A x 1- 2 and max cues. required max A to stabilize RLE. completed sit to stand from chair max A x 1-2 and max cues and was able to ambualte ~ 5 ft using FWW max A x 1-2 and max cues and chair follow. positioned pt on the chair. call light and table placed within reach. BP stable throughout PT session: 104/47 to 109/53 and pt without c/o dizziness/ nausea. Gait Assessment Gait Gait Assistance Required: Maximum Assistance,1 Person Assist,2 Person Assist Distance (Feet) 5 Able to Maintain Weight Bearing Status Yes During Gait Assistive Devices Assistive Device Gait Belt,Front Wheeled Walker Orthotic/Prosthetic Devices or Brace: No Gait Deviations General Gait Pattern Antalgic,Decreased Stride Length,Decreased Feet Clearance,Step-to Gait Factors Limiting Gait Function Factors Limiting Gait Function Decreased Activity Tolerance, Decreased Strength,Limited Range of Motion,Pain,Poor Balance,Poor Safety Awareness M5 PT-IP Objective Assessments Start: 05/12/21 08:26 Freq: Status: Active Protocol: Document 05/13/21 16:16 LRN (Rec: 05/13/21 16:44 LRN [id number]) Orientation Orientation/Cognition Level of Alertness Alert Orientation Name,Age,Day of Week,Place, Situation Language Function Ability No Deficits Noted Safety Awareness Understands Safety Issues Memory Description No Deficits Noted M6 PT-IP Treatment Start: 05/12/21 08:26 Freq: Status: Active Protocol: Document 05/14/21 09:35 AB (Rec: 05/14/21 12:49 AB [id number]) Physical Therapy Treatment Education Education Provided Safety M7 PT-IP Assessment and Plan Start: 05/12/21 08:26 Freq: Status: Active Protocol: Document 05/14/21 09:35 AB (Rec: 05/14/21 12:49 AB [id number]) PT Summary Assessment and Plan Potential Rehabilitation Potential Good Summary Impairments Pain,ROM,Strength,Balance, Coordination,Sensation,Tone, Cognition,Bed Mobility, Transfers,Gait,Activity Tolerance Progress Towards Goals Slow Progress due to Pain,Slow Progress due to Activity Tolerance Assessment Summary pt requiring max Ax 1-2 with all tasks and max cues. unable to tolerate much ambulation and will require SNF rehab to improve overall strength and functional independence. Goals Bed Mobility Goal Contact Guard Assistance, Minimal Assistance Transfer Goal Standby Assistance,Contact Guard Assistance Gait Goal Contact Guard Assistance, Minimal Assistance Gait Distance 150' Other Goals 2 stairs Days to Meet Goals 10 Frequency of Treatment Frequency Of Treatment Twice a Day Treatment Plan Physical Therapy Treatment Plan Bed Mobility Training,Transfer Training,Gait Training, Therapeutic Exercise,Hot or Cold Pack Other Recommendations and Next Treatment ambulation Focus Precautions Other Precautions WBAT RLE Recommendations To Nursing Amount of Assist Needed 2 Person Assist Discharge Recommendations PT Discharge Recommendations SNF Rehab Transportation Needs at Discharge Wheelchair/Cabulance
[2021-05-14] MEDS: LORATADINE 10 MG TABLET PO (10:05)
[2021-05-14] MEDS: CHOLECALCIFEROL (VITAMIN D3) 1,000 UNIT TABLET 500 UNIT PO (10:05)
[2021-05-14] MEDS: FINASTERIDE 5 MG TABLET PO (10:06)
[2021-05-14] MEDS: SODIUM CHLORIDE 0.9% FLUSH 10 ML IV ×2 (10:06→20:49)
[2021-05-14] MEDS: DORZOLAMIDE/TIMOLOL OPHTH 10 ML 1 DROPS EYE-BOTH ×2 (10:06→20:49)
[2021-05-14] MEDS: OXYCODONE IR 5 MG TABLET PO ×2 (10:06→12:44)
[2021-05-14] MEDS: ASCORBIC ACID 500 MG TABLET 1000 MG PO (10:58)
--- NOTE | 2021-05-14 12:22 | CM.DPNOTE ---
Called and faxed referral packet to [facility] [phone] at Gayathri's request. Spoke to Rafia and she had availability and takes [place]. She will review information and call us back. Fax confirmation received. Called [facility] and spoke to Fide who said they are not accepting pts. due to a Covid outbreak at their facility. She also mentioned that . [facility] does not accept. [place]. Thuy Savage CM Asst.
--- NOTE | 2021-05-14 14:24 | OT.IP.TRT ---
Current Diagnoses Fracture of unspecified part of neck of right femur, initial encounter for closed fracture (05/11/21) Surgery Performed Operation Date: 05/12/21 09:30 Actual Procedures p Intramedullary Nailing Femur(Right) - Ana Maria Schofield MD Occupational Therapy Treatment Note M2 OT-IP Current Condition Start: 05/13/21 13:04 Freq: Status: Active Protocol: Document 05/13/21 13:05 [facility] (Rec: 05/13/21 13:28 [facility] [id number]) Occupational Therapy Current Condition Current Condition Evaluation Date 05/13/21 Treatment Diagnosis Fall with R hip fx, s/p R IM nailing. Diagnosis Onset Date 05/11/21 Weight Bearing Status Weight Bearing Status Weight Bear as Tolerated M3 OT- IP Subjective and Pain Start: 05/13/21 13:04 Freq: Status: Active Protocol: Document 05/14/21 14:26 [facility] (Rec: 05/14/21 14:41 [facility] [id number]) OT- Subjective Occupational Therapy Visit Type Type Treatment Note Visit Start Time 13:07 Visit Stop Time 14:24 Total Visit Minutes 41 Occupational Therapy Visit Comments Patient Comments Pt wanting to take a shower and agreed to sponge off later as just about to eat lunch. Pt's life partner, Melanie in the room with her. Melanie felt that pt is very confused and normally thinks well and feels that it is the pain medications that is affecting her. Pt's nurse notified of Melanie and OT's observations of pt's cognitive status. Patient/Caregiver Goals Pt wanting to go home, but realizes best to go to skilled rehab prior to going home. OT Pain Assessment Pain When Pain Assessed At Rest Pain Present Pain Present Denied Pain M4 OT- IP ADL's Start: 05/13/21 13:04 Freq: Status: Active Protocol: Document 05/14/21 14:26 [facility] (Rec: 05/14/21 14:41 [facility] [id number]) OT [id number]-[id number]-[id number] Comments OT Self-Feeding Comments Pt not having an appetite and forgot to request/order food. Able to ask nursing if pt able to get a protein drink. OT ADL-Grooming General Evaluation Areas Needing Assistance Retrieving/Set-up of Grooming Items Comments OT Grooming Comments Whil seated. OT ADL-Oral Care General Eval Oral Care Ability Independent OT ADL-Dressing General Eval Lower Body Dressing Ability Maximum Assistance Areas Needing Assistance Underpants/Brief,Pants/Shorts OT ADL-Toileting Comments OT Toileting Comments Pt not having to at this time. OT ADL-Bathing Bathing Type Bathing Type Sponge Bath General Evaluation Bathing Ability Moderate Assistance Areas Needing Assistance Wash/Dry Back,Wash/Dry Perineal Area,Wash/Dry Lower Extremities Comments OT Bathing Comments Pt needing vc to follow for sponge bathing as very groggy. Pt needing assist to help with her BLE, back, and pericare needs. One person assist to help stand to FWW and another to complete hygiene and brief management needs. Able to give Melanie equipment list as pt will most likely need equipment after skilled rehab. Currently pt's shower and tub/shower are up one flight of steps. M5 OT- IP IADL's Start: 05/13/21 13:04 Freq: Status: Active Protocol: Document 05/13/21 13:05 [facility] (Rec: 05/13/21 13:28 [facility] [id number]) OT-Instrumental Activities of Daily Living Deficits IADL Deficits Identified No Deficits Home Safety Awareness Awareness of Need for Assistance at Home Good Awareness Ability to Problem Solve Emergency Able to Problem Solve Situations Medication Management Medication Management No Deficits Identified Money Management Money Management No Deficits Identified Meal Preparation Meal Preparation Caregiver Provides Assist Animal Trainer Animal Trainer Caregiver Provides Assist Driving Driving Comments 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 Pt understands that she will need to be cleared by her doctor before driving. M6 OT- IP Functional Cognition Start: 05/13/21 13:04 Freq: Status: Active Protocol: Document 05/14/21 14:26 [facility] (Rec: 05/14/21 14:41 [facility] [id number]) Cognitive Factors Limiting Selfcare Function Cognitive Ability Level of Alertness Confusional State Attention Span Ability Capable of Focused Attention, Unable to Sustain Attention Ability to Follow Commands Able to Follow One Step Commands with Increased Time, Able to Follow One Step Commands with Repetition Memory Description Short Term Impaired Cognitive Comments Cognitive Assessment Comments Per pt's life partner feels that the pain medications are making her groggy and confused . Pt having difficulty to sequence through ADL Task at this time. Nursing notified and stated to look into it. M7 OT- IP Mobility and Balance Start: 05/13/21 13:04 Freq: Status: Active Protocol: Document 05/14/21 14:26 [facility] (Rec: 05/14/21 14:41 [facility] [id number]) OT-Transfer Assessment Sit to and From Stand Sit to and from Stand Moderate Assistance,1 Person Assistance Comments Mobility Comments Pt just able to come to stand with MODA x 1-2 with FWW. Pt' s right LE tends to buckle and was not able to take a step at this time. OT- Balance Assessment Sitting Balance and Reactions Static Sitting Balance Ability Good Dynamic Sitting Balance Ability Good Standing Balance and Reactions Static Standing Balance Ability Poor M8 OT- IP Objective Assessments Start: 05/13/21 13:04 Freq: Status: Active Protocol: Document 05/13/21 13:05 [facility] (Rec: 05/13/21 13:28 [facility] [id number]) OT Gross Range of Motion Upper Extremity Range of Motion Assessment Within Functional Limits OT Strength Upper Extremity Strength Assessment Within Functional Limits Comments Strength Comments grossly 4/5 OT- Coordination Assessment Upper Extremity Finger to Nose Test Within Functional Limits Finger Tapping Test Within Functional Limits OT-Muscle Tone Assessment Muscle Tone WNL Yes OT Sensation Assessment Edema Edema Absent M9 OT- IP Assessment and Plan Start: 05/13/21 13:04 Freq: Status: Active Protocol: Document 05/14/21 14:26 [facility] (Rec: 05/14/21 14:41 [facility] [id number]) OT Summary Assessment and Plan Potential Rehabilitation Potential Good Analytic Complexity at Evaluation Moderate Summary OT Impairments Pain,Balance,Functional Cognition,Functional Mobility, Grooming,Dressing,Toileting, Bathing,Toilet Transfers, Shower Transfers,Activity Tolerance Progress Towards Goals Slow Progress due to Pain,Slow Progress due to Medical Issues,Slow Progress due to Activity Tolerance,Slow Progress due to Cognition Assessment Summary Pt today a bit groggy and pt's life partner, Melanie feels that her pain medications are making her groggy and not thinking well. Nursing notified of pt's decreased thinking abilities at this time. Pt not safe to go home as her right LE lisa when trying to walk and needing extensive assist x2 for most ADl needs. Pt would benefit from skilled rehab prior to going home. Pt has a supportive life partner to assist when pt is able to mobilize better. Goals Grooming Goal Independent Dressing Goal Independent Toileting Goal Independent Bathing Goal Independent Toilet Transfer Goal Independent Shower Transfer Goal Independent Days to Meet Goals 20 Frequency of Treatment Frequency Of Treatment Once a Day Treatment Plan OT Treatment Plan ADL Training,Functional Mobility,Patient/Family Education,Discharge Planning Other Treatment Recommendations and Next LB dressing. Treatment Focus Discharge Recommendations OT Discharge Recommendations SNF Rehab Transportation Needs at Discharge Wheelchair/Cabulance
--- NOTE | 2021-05-14 14:25 | PT.IPTN ---
Current Diagnoses Fracture of unspecified part of neck of right femur, initial encounter for closed fracture (05/11/21) Surgery Performed Operation Date: 05/12/21 09:30 Actual Procedures p Intramedullary Nailing Femur(Right) - Ana Maria Schofield MD Physical Therapy Treatment Note M2 PT-IP Current Condition Start: 05/12/21 08:26 Freq: Status: Active Protocol: Document 05/13/21 16:16 [facility] (Rec: 05/13/21 16:44 [facility] [id number]) Physical Therapy Current Condition Current Condition Evaluation Date 05/13/21 Treatment Diagnosis s/p R hip ORIF for femur IT fracture Onset Date 05/12/21 Weight Bearing Status Weight Bearing Status Weight Bear as Tolerated M3 PT-IP Subjective Start: 05/12/21 08:26 Freq: Status: Active Protocol: Document 05/14/21 14:25 [facility] (Rec: 05/14/21 16:14 AB [id number]) Subjective Physical Therapy Visit Type Type Treatment Note Visit Start Time 14:25 Visit Stop Time 14:50 Total Visit Minutes 25 Number of CLEANER ASSISTANT Visits 0 Physical Therapy Visit Comments Patient Comments pt agreeable to do PT; pt's partner in room with pt and confirmed that she cannot assist pt much physically Therapy Pain Assessment Pain When Pain Assessed At Rest Pain Present Pain Present Pain Reported Location Right Hip Intensity 6 Scale Used Numeric (0 - 10) Pain Management Techniques Distraction,Modification of Treatment,Re-positioning, Timing of Activity with Medications M4 PT-IP Mobility and Gait Start: 05/12/21 08:26 Freq: Status: Active Protocol: Document 05/14/21 14:25 [facility] (Rec: 05/14/21 16:14 [facility] [id number]) PT-Bed Mobility Assessment Sit to Supine Sit to Supine Maximum Assistance,1 Person Assistance PT-Transfer Assessment Sit to and From Stand Sit to and from Stand Maximum Assistance,1 Person Assistance,Use of Upper Extremities Equipment Transfer Assistive Device Gait Belt,Front Wheeled Walker Orthotic/Prosthetic Devices or Brace: No Transfers Transfer Destination Bed Transfer Technique ambulated using FWW Transfer Ability Level of Assist Maximum Assistance,1 Person Assistance,Use of Upper Extremities Comments Mobility Comments pt sitting on chair and agreed to do PT but wants to go back to bed afterwards.completed seated exercises: LAQs with 5 sec hold, ankle pumps. pt's partner Melanie in room with pt and confirmed that she cannot provide pt much physical assist. O2 sat at room air resting; 94%. pt completed sit to stand max A and max cues. pt ambulated ~ 12 ft using FWW max A and max cues. (+) R knee buckling requiring max A to stabilize R LE. pt requested to go back to bed. O2 sat after ambulation sitting on EOB 88%. cued pt for deep breathing and O2 sat increased to 91%. pt completed sit to supine max A and max cues. positioned pt in bed. call light and table placed within reach. informed pt and Melanie regarding pt's level of assistance and both agreed for pt to go to SNF. Melanie agreed that it is too much for her to do to assist pt. Gait Assessment Gait Distance (Feet) 12 Able to Maintain Weight Bearing Status Yes During Gait Assistive Devices Assistive Device Gait Belt,Front Wheeled Walker Orthotic/Prosthetic Devices or Brace: No Gait Deviations General Gait Pattern Antalgic,Decreased Stride Length,Decreased Feet Clearance,Lateral Trunk Lean, Step-to Gait Factors Limiting Gait Function Factors Limiting Gait Function Decreased Activity Tolerance, Decreased Strength,Difficulty Following Directions,Limited Range of Motion,Pain,Poor Balance,Poor Safety Awareness, Respiratory Distress M5 PT-IP Objective Assessments Start: 05/12/21 08:26 Freq: Status: Active Protocol: Document 05/13/21 16:16 [facility] (Rec: 05/13/21 16:44 [facility] [id number]) Orientation Orientation/Cognition Level of Alertness Alert Orientation Name,Age,Day of Week,Place, Situation Language Function Ability No Deficits Noted Safety Awareness Understands Safety Issues Memory Description No Deficits Noted M6 PT-IP Treatment Start: 05/12/21 08:26 Freq: Status: Active Protocol: Document 05/14/21 14:25 [facility] (Rec: 05/14/21 16:14 [facility] [id number]) Physical Therapy Treatment Exercises Exercises Ankle Pumps,Seated Knee Flexion/Extension Education Education Provided Safety M7 PT-IP Assessment and Plan Start: 05/12/21 08:26 Freq: Status: Active Protocol: Document 05/14/21 14:25 [facility] (Rec: 05/14/21 16:14 [facility] [id number]) PT Summary Assessment and Plan Potential Rehabilitation Potential Good Summary Impairments Pain,ROM,Strength,Balance, Coordination,Sensation,Tone, Cognition,Bed Mobility, Transfers,Gait,Activity Tolerance Progress Towards Goals Slow Progress due to Pain,Slow Progress due to Activity Tolerance Assessment Summary pt requiring max A with transfers and ambulation using FWW with (+) R knee buckling during ambulation requiring max A for stability. pt will require SNF rehab to improve strength and independence. Goals Bed Mobility Goal Minimal Assistance Transfer Goal Contact Guard Assistance,Front Wheeled Walker Gait Goal Minimal Assistance,Front Wheel Walker Gait Distance 50 Other Goals 2 steps Days to Meet Goals 10 Frequency of Treatment Frequency Of Treatment Twice a Day Treatment Plan Physical Therapy Treatment Plan Bed Mobility Training,Transfer Training,Gait Training, Therapeutic Exercise,Hot or Cold Pack Other Recommendations and Next Treatment ambulation Focus Precautions Other Precautions WBAT RLE Recommendations To Nursing Amount of Assist Needed 2 Person Assist Discharge Recommendations PT Discharge Recommendations SNF Rehab Equipment Needed for Home Before FWW if pt goes home Discharge Transportation Needs at Discharge Wheelchair/Cabulance
--- NOTE | 2021-05-14 15:18 | P.PN_ITS ---
Subjective Subjective Date Patient Seen: 05/14/21 Time Patient Seen: 15:18 Interval history: Patient states she is doing well overall and is in mild discomfort at rest. At this time she denies fever, chills, nausea, chest pain, or shortness of breath. She reports good sensation throughout the bilateral lower extremities. Exam Vital Signs (past 8 hours): - 05/14/21 08:00 05/14/21 12:00 Temperature 98.5 F 98.8 F Pulse Rate 76 90 Respiratory Rate 14 14 Blood Pressure 1100/56 H 126/63 Pulse Oximetry 91 98 Oxygen Delivery Method Nasal Cannula Oxygen Flow Rate 0 Narrative Exam Narrative: Pleasant 75-year-old female postop day 2. Patient is resting comfortably in bed, is in no acute distress, and is alert and oriented x3. Skin is warm and dry, and the skin surrounding the incision site is free of erythema, warmth, induration, or discharge. Dressing over the incision site is clean, dry, and intact. Good sensation appreciated throughout the bilateral lower extremities to light touch. Ankle dorsiflexion, plantar flexion, eversion, inversion performed bilaterally without difficulty or discomfort. Calves are soft and nontender, negative Homans sign. DP pulses palpated bilaterally. No other signs of DVT appreciated. Const General: cooperative, healthy appearing and comfortable Resp Effort & Inspection: normal respiratory effort and able to speak in complete sentences Skin General: no rashes or lesions noted Objective Labs Result Diagrams: 05/14/21 05:20 05/12/21 05:15 Labs: Laboratory Results - last 24 hr 05/14/21 05:20 WBC 9.5 RBC 3.35 L Hgb 10.0 L Hct 29.7 L MCV 88.9 MCH 29.8 MCHC 33.5 RDW 13.5 Plt Count 106 L Neut % (Auto) 76.9 H Lymph % (Auto) 9.9 L [place] % (Auto) 12.1 Eos % (Auto) 0.8 L Baso % (Auto) 0.3 Neut # (Auto) 7300 H Lymph # (Auto) 900 L [place] # (Auto) 1100 H Eos # (Auto) 100 Baso # (Auto) 0 PFSH Medical History Glaucoma Lichen planopilaris Macular degeneration Surgical History History of left cataract surgery History of partial hysterectomy Family History Sister Diabetes mellitus Mother Stroke Hypertension Father Stroke Cancer Glaucoma Social History marital status: household members: significant other occupational status: previously employed Smoking Status: Never smoker alcohol intake: current substance use type: does not use Assessment & Plan Post-op Postoperative Procedures: Procedures Operation Date: 05/12/21 09:30 Actual Procedure Side Surgeon p Intramedullary Nailing Femur Right Ana Maria Schofield MD Postoperative day: 2 Postoperative status: doing well Postoperative plan: ambulate Postoperative plan narrative: Patient is to continue working on ambulation with the assistance of a front wheeled walker with physical therapy patient will remain weight-bearing as tolerated. Current pain management regimen is to be continued as it is adequately controlled the patient's pain level. Patient cleared for discharge pending hospitalist clearance. Quality VTE Deep Vein Thrombosis/Pulmonary Embolism Present on Admission: No
--- NOTE | 2021-05-14 15:55 | PM.PN.1 ---
Subjective Subjective Interval history: Today her pain is controlled. She has no complaints. She was briefly on oxygen, but now is off, she has no shortness of breath or cough. Exam Vital Signs (past 8 hours): - 05/14/21 08:00 05/14/21 12:00 Temperature 98.5 F 98.8 F Pulse Rate 76 90 Respiratory Rate 14 14 Blood Pressure 1100/56 H 126/63 Pulse Oximetry 91 98 Oxygen Delivery Method Nasal Cannula Oxygen Flow Rate 0 Narrative Exam Narrative: GEN: AAOx3. No apparent distress. CV: Regular rate and rhythm with no murmurs PULM: clear bilaterally EXT: no ankle edema. Objective Labs Result Diagrams: 05/14/21 05:20 05/12/21 05:15 Labs: Laboratory Results - last 24 hr 05/14/21 05:20 WBC 9.5 RBC 3.35 L Hgb 10.0 L Hct 29.7 L MCV 88.9 MCH 29.8 MCHC 33.5 RDW 13.5 Plt Count 106 L Neut % (Auto) 76.9 H Lymph % (Auto) 9.9 L [place] % (Auto) 12.1 Eos % (Auto) 0.8 L Baso % (Auto) 0.3 Neut # (Auto) 7300 H Lymph # (Auto) 900 L [place] # (Auto) 1100 H Eos # (Auto) 100 Baso # (Auto) 0 PFSH Medical History Glaucoma Lichen planopilaris Macular degeneration Surgical History History of left cataract surgery History of partial hysterectomy Family History Sister Diabetes mellitus Mother Stroke Hypertension Father Stroke Cancer Glaucoma Social History marital status: household members: significant other occupational status: previously employed Smoking Status: Never smoker alcohol intake: current substance use type: does not use Assessment & Plan Assessment & Plan narrative: 1. Comminuted Trochanteric fracture of right hip with vargus angulation, pathologic, secondary to mechanical fall (off step stool in her yard), acute, present on admission -Dr. Schofield did an ORIF IM nail on 05/12/21 -[facility] out today -PT eval and rec for placement pending -plan for dc to snf 05/15 2. Mild malnourishment with Albumin of 3.2, acute on chronic present on admission -dietary consult. 3. 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 Code status: Full code Surrogate decision maker: Partner Melanie Capone DVT/VTE prophylaxis: SCD only on the left leg, medication contraindicated due to recent surgery Quality VTE Deep Vein Thrombosis/Pulmonary Embolism Present on Admission: No
--- NOTE | 2021-05-14 17:41 | CM.DANOTE ---
DCP/continued: Reviewed chart. Current recommendation is SNF. ELECTRON[employer] PUBLISHER spent most of the day trying to find SNF. Received call back from [facility] ph# [phone], Tessie she reports that they can accept patient on 05-15-21. Met with patient and partner they are aware agreeable. [facility] will need to be called in AM to confirm acceptance. Patient does have medication at [facility] that she is taking from home and that will need to be confirmed. Patient has had COVID vaccine. Patient most likely will need non-urgent BLS transport secondary to spine precautions. Provider updated on above. P: Anticipate d/c to [facility] on Thursday05-15-21. PASRR completed. TYLER Romano
--- NOTE | 2021-05-14 21:42 | PC.NURSE ---
Pt resting @ intervals. Denies pain when asked. HL intact/patent. Using BSC w/o incidence. Dsg to hip CDI. Call light w/in reach, bed alarm on for pt safety. Continue w/plan of care.
[2021-05-15] VITALS (8 sets, daily range): BP systolic 110–120; BP diastolic 52–69; PULSE 68–91; RESP 14–22; TEMP 36.7–38.2; O2SAT 91–97
--- NOTE | 2021-05-15 01:17 | PC.NURSE ---
0118 Temp. elevated @ 100.7, EMRE Guillen notified she will order Tylenol. Awaiting verification with night pharmacy. Will cont. POC & monitor.
[2021-05-15] MEDS: ACETAMINOPHEN 325 MG TABLET 650 MG PO ×2 (01:22→12:51)
--- NOTE | 2021-05-15 06:19 | P.DS_ITS ---
History of Present Illness History of Present Illness Chief complaint: RT HIP FRACTURE Narrative: Per Marguerite Grewal: 75-year-old female Libby Gupta, who presented to [facility] ED for right hip. Patient was up on a 2 step stool (approx 3 feet) working on her lilac-the stool gave way and she fell onto her right hip and right shoulder. She was unable to move her hip and required EMS assistance to get off the ground, had severe pain, and denied numbness or tingling, pain with movement, and was c oncerned for fracture. Her partner called the ambulance and brought her to the hospital. Patient's pain was not adequately managed with Toradol initially in the ED but did have pain relief with Dilaudid and Zofran. Dr. Schmitz from [facility] ED contacted our hospitalist office and stated that would be had no orthopedic services available over the weekend and had spoken with Dr. Louis who agreed to take her to surgery at [facility]. We accepted the patient and she was transferred. Patient's only medical history is glaucoma, catracts, and lichen planus. She takes Finasteride, hydro xychloroquine, miniocycline for her lichen planus, she also uses unknown drops for her glaucoma. Patient stated that she will not be taking any of her medication while she is in the hospital and that she should be fine to miss a few days. Patient denies chest pain, shortness of breath, nausea, vomiting, abdominal pain, fever, body aches, chills. Patient does complain of right leg pain 7/10. Patient is resting in bed in moderate discomfort, BP 120/61, HR 62, RR 18, sat 97% on room air. Patient's CBC is all within normal limits as is her chemistry panel the exception of a mildly elevated glucose at 1:10 a.m., lipase negative. Right Shoulder xray was negative for fracture. Right hip x-ray demonstrates commuted trochanteric fracture of the right hip with vargus angulation. Patient denies any anticoagulation. Discharge Providers Provider Date of admission: 05/11/21 21:22 Discharge Date: 05/15/21 Primary care physician: Nhi Handy MD Consults: 05/12/21 00:40 Consult to Occupational Therapy Evaluate & Treat Comment: Rt hip fx Physician Instructions: Evaluate and treat Consult to Physical Therapy Evaluate & Treat Comment: Right Hip Fx Physician Instructions: Evaluate and Treat Consult to Physician Routine Comment: Consulting Provider: Ana Maria Schofield Reason for consultation: Right Hip Fx Has provider been notified: Yes 05/12/21 12:56 Consult to Discharge Planning Routine Comment: Consult to Physical Therapy Evaluate & Treat Comment: Physician Instructions: Evaluate and Treat Consult to Respiratory Therapy Evaluate & Treat Comment: Physician Instructions: Evaluate and treat Discharge provider: Ghassan Bush MD Summary Hospital Course Discharge Diagnosis: 1. Comminuted Trochanteric fracture of right hip with vargus angulation, pathologic, secondary to mechanical fall (off step stool in her yard), acute, present on admission 2.. Mild malnourishment with Albumin of 3.2, acute on chronic present on admission Hospital Course: Ms. Gupta had a mechanical fall after stepping off a stool causing a right hip fracture. She had IM nail with Dr. Schofield on 05/12/21. She discharged to SNF on aspirin BID and will plan to see orthopedics as an outpatient. Exam Vital Signs (past 8 hours): Oxygen Delivery Method Room Air Oxygen Flow Rate 0 Narrative Exam Narrative: GEN: AAOx3. No apparent distress. CV: Regular rate and rhythm with no murmurs PULM: clear bilaterally EXT: no ankle edema. Objective Labs Result Diagrams: 05/14/21 05:20 05/12/21 05:15 [facility] Medical History Glaucoma Lichen planopilaris Macular degeneration Surgical History History of left cataract surgery History of partial hysterectomy Family History Sister Diabetes mellitus Mother Stroke Hypertension Father Stroke Cancer Glaucoma Social History marital status: household members: significant other occupational status: previously employed Smoking Status: Never smoker alcohol intake: current substance use type: does not use Discharge Plan Discharge Plan Patient Disposition: SNF Provider Discharge Comment: Ms. Gupta came in after a fall. She had a hip fracture. She had it repaired. She will be discharged to SNF for physical therapy. Follow up with Dr. Schofield in two weeks. take 81mg aspirin daily Discharge orders & Medications Prescriptions: New oxycodone 5 mg tablet 5 mg PO Q4H PRN (Reason: pain) Qty: 30 RF: 0 aspirin 81 mg Tablet,Delayed Release (Dr/Ec) 81 mg PO BID Qty: 10 RF: 0 acetaminophen 325 mg Tablet 650 mg PO Q4HR PRN (Reason: Fever/Mild Pain (1-3)) Qty: 10 RF: 0 bisacodyl 10 mg Suppository 10 mg VA PRN PRN (Reason: Constipation) Qty: 12 RF: 0 docusate sodium [DOK] 100 mg Capsule 100 mg PO BID PRN (Reason: Constipation) Qty: 10 RF: 0 Continued ascorbate calcium (vitamin C) 500 mg tablet 1 gram PO DAILY RF: 0 cranberry 400 mg capsule 400 mg PO DAILY RF: 0 hydroxychloroquine [Plaquenil] 200 mg tablet 200 mg PO Q OTHER DAY RF: 0 cholecalciferol (vitamin D3) 1,000 unit capsule 500 unit PO DAILY RF: 0 Zyrtec 10 mg capsule 10 mg PO DAILY RF: 0 vitamins A,C,A-fmse-hfdzgg [PreserVision AREDS] 7,160-113-100 amiu-wp-sdnq tablet 2 tab PO BID RF: 0 finasteride 5 mg tablet 5 mg PO DAILY RF: 0 minocycline 50 mg Capsule 50 mg PO BID RF: 0 dorzolamide-timolol [Cosopt] 22.3-6.8 mg/mL drops 1 drp EYE-BOTH BID RF: 0 Follow up/Referrals: Nhi Handy MD [Primary Care Provider] - Diet/Activity/Treatments Diet: Diet as Tolerated and Regular Activity: Weight bear as tolerated to right leg Skin/Wound/Dressing Care Report to your healthcare provider any signs of infection, such as:: chills, fever, night sweats, unusual drainage and unusual redness Dressing: keep dressing clean dry intact May remove dressing in 5 days and re-apply dry gauze or large bandaid. Visit Report/Discharge Packet Instructions: DI for Heart Failure, DI for Hip Fracture, DI for Prescription Opioid Use Stand Alone Forms: Surgery Discharge Discharge Data Primary Care Provider: Nhi Handy Quality VTE Deep Vein Thrombosis/Pulmonary Embolism Present on Admission: No MIPS - DC The patient has current or prior documentation of left ventricular ejection fraction (LVEF) less than 40%, or moderate or severely depressed left ventricular systolic function.: No
--- NOTE | 2021-05-15 07:39 | PM.PNPO.1 ---
Subjective Subjective Date Patient Seen: 05/15/21 Time Patient Seen: 07:39 Interval history: Patient states she is doing well overall and is in minimal discomfort at rest. At this time she denies fever, chills, nausea, chest pain, shortness of breath, or urinary retention. She reports good sensation throughout the bilateral lower extremities. Exam Vital Signs (past 8 hours): - 05/15/21 00:00 05/15/21 01:05 05/15/21 01:22 Temperature 100.7 F H 100.7 F H Pulse Rate 91 H Respiratory Rate 22 Blood Pressure 120/52 L Pulse Oximetry 91 92 05/15/21 01:55 05/15/21 01:58 05/15/21 03:51 Temperature 99.8 F H 99.8 F H 98.1 F Pulse Rate 79 Respiratory Rate 14 Blood Pressure 110/60 Pulse Oximetry 97 Oxygen Delivery Method Room Air Oxygen Flow Rate 0 Narrative Exam Narrative: Pleasant 75-year-old female postop day 4. Patient is resting comfortably in bed, is in no acute distress, is alert and oriented x3. Skin is warm dry, and the skin surrounding the incision site is free of erythema, warmth, induration, or discharge. Dressing over the incision site is clean, dry, and intact. Good sensation appreciated throughout the bilateral lower extremities to light touch. Ankle dorsiflexion, plantar flexion, eversion, inversion performed bilaterally without difficulty or discomfort. Calves are soft nontender, negative Homans sign. DP pulses palpated bilaterally. No other signs of DVT appreciated. Const General: cooperative, healthy appearing and comfortable Resp Effort & Inspection: normal respiratory effort and able to speak in complete sentences Skin General: no rashes or lesions noted Objective Labs Result Diagrams: 05/14/21 05:20 05/12/21 05:15 [facility] Medical History Glaucoma Lichen planopilaris Macular degeneration Surgical History History of left cataract surgery History of partial hysterectomy Family History Sister Diabetes mellitus Mother Stroke Hypertension Father Stroke Cancer Glaucoma Social History marital status: household members: significant other occupational status: previously employed Smoking Status: Never smoker alcohol intake: current substance use type: does not use Assessment & Plan Post-op Postoperative Procedures: Procedures Operation Date: 05/12/21 09:30 Actual Procedure Side Surgeon p Intramedullary Nailing Femur Right Ana Maria Schofield MD Postoperative day: 4 Postoperative status: doing well Postoperative plan: ambulate Postoperative plan narrative: Patient is to continue working on ambulation with the assistance of a front wheeled walker with physical therapy. She is to remain weight-bearing as tolerated on the right lower extremity. Current pain management regimen is to be continued as it is adequately controlled the patient's pain level. Plan for transfer to alf facility likely today pending nursing facility acceptance. Quality VTE Deep Vein Thrombosis/Pulmonary Embolism Present on Admission: No
[2021-05-15] MEDS: DORZOLAMIDE/TIMOLOL OPHTH 10 ML 1 DROPS EYE-BOTH (08:30)
[2021-05-15] MEDS: FINASTERIDE 5 MG TABLET PO (08:30)
[2021-05-15] MEDS: ASPIRIN EC 81 MG TABLET PO (08:30)
[2021-05-15] MEDS: CHOLECALCIFEROL (VITAMIN D3) 1,000 UNIT TABLET 500 UNIT PO (08:31)
[2021-05-15] MEDS: LORATADINE 10 MG TABLET PO (08:31)
[2021-05-15] MEDS: BISACODYL 10 MG SUPP PR (08:31)
[2021-05-15] MEDS: DOCUSATE 100 MG CAPSULE PO (08:31)
[2021-05-15] MEDS: SODIUM CHLORIDE 0.9% FLUSH 10 ML IV (08:32)
[2021-05-15] MEDS: ASCORBIC ACID 500 MG TABLET 1000 MG PO (08:40)
[2021-05-15] MEDS: HYDROXYCHLOROQUINE 200 MG TABLET PO (09:08)
--- NOTE | 2021-05-15 10:56 | OT.IP.TRT ---
Current Diagnoses Fracture of unspecified part of neck of right femur, initial encounter for closed fracture (05/11/21) Surgery Performed Operation Date: 05/12/21 09:30 Actual Procedures p Intramedullary Nailing Femur(Right) - Ana Maria Schofield MD Occupational Therapy Treatment Note M2 OT-IP Current Condition Start: 05/13/21 13:04 Freq: Status: Active Protocol: Document 05/13/21 13:05 [facility] (Rec: 05/13/21 13:28 [facility] [id number]) Occupational Therapy Current Condition Current Condition Evaluation Date 05/13/21 Treatment Diagnosis Fall with R hip fx, s/p R IM nailing. Diagnosis Onset Date 05/11/21 Weight Bearing Status Weight Bearing Status Weight Bear as Tolerated M3 OT- IP Subjective and Pain Start: 05/13/21 13:04 Freq: Status: Active Protocol: Document 05/15/21 12:45 [facility] (Rec: 05/15/21 13:00 [facility] [id number]) OT- Subjective Occupational Therapy Visit Type Type Treatment Note Visit Start Time 10:26 Visit Stop Time 10:56 Total Visit Minutes 30 Occupational Therapy Visit Comments Patient Comments Pt agreed to do therapy with OT and [employer], pt seen together for part of the session as right knee buckling yesterday. Patient/Caregiver Goals Pt wanting to go home, but realizes best to go to skilled rehab prior to going home. OT Pain Assessment Pain When Pain Assessed During Mobility Pain Present Pain Present Pain Reported M4 OT- IP ADL's Start: 05/13/21 13:04 Freq: Status: Active Protocol: Document 05/15/21 12:45 [facility] (Rec: 05/15/21 13:00 [facility] [id number]) OT [id number] Comments OT Self-Feeding Comments Not meal time OT ADL-Grooming General Evaluation Grooming Ability Standby Assistance Areas Needing Assistance Retrieving/Set-up of Grooming Items Comments OT Grooming Comments While standing with FWW in front of the sink. Pt educated to place a hand on the sink for balance. OT ADL-Dressing General Eval Lower Body Dressing Ability Maximum Assistance Areas Needing Assistance Underpants/Brief,Pants/Shorts Comments OT Dressing Comments Began education for LB dressing equipment for use of molded goods controls operator to kathy her brief. Educated to kathy the weaker leg first and take it out last . OT ADL-Toileting General Evaluation Toileting Ability Moderate Assistance Areas Needing Assistance Manage Clothing Comments OT Toileting Comments Pt able to wipe on her own and needing assist for the brief and education to keep one hand on the walker while using the other one to assist to get the brief up and then switch hands. M5 OT- IP IADL's Start: 05/13/21 13:04 Freq: Status: Active Protocol: Document 05/13/21 13:05 [facility] (Rec: 05/13/21 13:28 [facility] [id number]) OT-Instrumental Activities of Daily Living Deficits IADL Deficits Identified No Deficits Home Safety Awareness Awareness of Need for Assistance at Home Good Awareness Ability to Problem Solve Emergency Able to Problem Solve Situations Medication Management Medication Management No Deficits Identified Money Management Money Management No Deficits Identified Meal Preparation Meal Preparation Caregiver Provides Assist Mount Loader Mount Loader Caregiver Provides Assist Driving Driving Comments 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 Pt understands that she will need to be cleared by her doctor before driving. M6 OT- IP Functional Cognition Start: 05/13/21 13:04 Freq: Status: Active Protocol: Document 05/15/21 12:45 [facility] (Rec: 05/15/21 13:00 [facility] [id number]) Cognitive Factors Limiting Selfcare Function Cognitive Ability Level of Alertness Alert Patient Orientation Name,Age,Birthday,Month,Date, Year,Day of Week,Place, Situation Attention Span Ability Capable of Focused Attention, Capable of Sustained Attention Ability to Follow Commands Able to Follow One Step Commands with Increased Time, Able to Follow One Step Commands with Repetition Safety Awareness No Deficits Noted Cognitive Comments Cognitive Assessment Comments Pt much clearer today and able to follow directions well. Pt only has taken Tylenol at this time. M7 OT- IP Mobility and Balance Start: 05/13/21 13:04 Freq: Status: Active Protocol: Document 05/15/21 12:45 [facility] (Rec: 05/15/21 13:00 [facility] [id number]) OT- Bed Mobility Assessment Supine to Sit Supine to Sit Assist Minimal Assistance Scooting Scooting to Edge of Bed Minimal Assistance OT-Transfer Assessment Sit to and From Stand Sit to and from Stand Minimal Assistance,Moderate Assistance Technique Transfer Destination Bed,Toilet Transfer Technique Stand Step Pivot Devices Transfer Assistive Devices Gait Belt,Front Wheeled Walker Comments Mobility Comments Pt REAL for bed mobility, use of bed rail and increased time. REAL to MODA to stand to FWW. Pt heavily using BUE and LLE to stand and mainly just resting her RLE on the floor. OT- Balance Assessment Sitting Balance and Reactions Static Sitting Balance Ability Good Dynamic Sitting Balance Ability Good Standing Balance and Reactions Static Standing Balance Ability Fair M8 OT- IP Objective Assessments Start: 05/13/21 13:04 Freq: Status: Active Protocol: Document 05/13/21 13:05 [facility] (Rec: 05/13/21 13:28 [facility] [id number]) OT Gross Range of Motion Upper Extremity Range of Motion Assessment Within Functional Limits OT Strength Upper Extremity Strength Assessment Within Functional Limits Comments Strength Comments grossly 4/5 OT- Coordination Assessment Upper Extremity Finger to Nose Test Within Functional Limits Finger Tapping Test Within Functional Limits OT-Muscle Tone Assessment Muscle Tone WNL Yes OT Sensation Assessment Edema Edema Absent M9 OT- IP Assessment and Plan Start: 05/13/21 13:04 Freq: Status: Active Protocol: Document 05/15/21 12:45 [facility] (Rec: 05/15/21 13:00 [facility] [id number]) OT Summary Assessment and Plan Potential Rehabilitation Potential Good Analytic Complexity at Evaluation Moderate Summary OT Impairments Pain,Balance,Functional Cognition,Functional Mobility, Grooming,Dressing,Toileting, Bathing,Toilet Transfers, Shower Transfers,Activity Tolerance Progress Towards Goals Progressing Toward Goals Assessment Summary Pt greatly improved with movement today and thinking better as now just taking Tylenol. Pt looking to go to skilled rehab today. Goals Grooming Goal Independent Dressing Goal Independent Toileting Goal Independent Bathing Goal Independent Toilet Transfer Goal Independent Shower Transfer Goal Independent Days to Meet Goals 15 Frequency of Treatment Frequency Of Treatment Once a Day Treatment Plan OT Treatment Plan ADL Training,Functional Mobility,Patient/Family Education,Discharge Planning Discharge Recommendations OT Discharge Recommendations SNF Rehab Transportation Needs at Discharge Private Vehicle
--- NOTE | 2021-05-15 11:05 | PT.IPTN ---
Current Diagnoses Fracture of unspecified part of neck of right femur, initial encounter for closed fracture (05/11/21) Surgery Performed Operation Date: 05/12/21 09:30 Actual Procedures p Intramedullary Nailing Femur(Right) - Ana Maria Schofield MD Physical Therapy Treatment Note M2 PT-IP Current Condition Start: 05/12/21 08:26 Freq: Status: Discharge Protocol: Document 05/13/21 16:16 [facility] (Rec: 05/13/21 16:44 [facility] [id number]) Physical Therapy Current Condition Current Condition Evaluation Date 05/13/21 Treatment Diagnosis s/p R hip ORIF for femur IT fracture Onset Date 05/12/21 Weight Bearing Status Weight Bearing Status Weight Bear as Tolerated M3 PT-IP Subjective Start: 05/12/21 08:26 Freq: Status: Discharge Protocol: Document 05/15/21 10:25 [facility] (Rec: 05/15/21 16:49 SP [id number]) Subjective Physical Therapy Visit Type Type Treatment Note Visit Start Time 10:25 Visit Stop Time 11:05 Total Visit Minutes 40 Notes Co tx with OT. Number of DEVULCANIZER OPERATOR Visits 1 Physical Therapy Visit Comments Patient Comments Pt agreeable to working with DEVULCANIZER OPERATOR/ OT. Patient Goals Go to skilled rehab to get stronger to return home. Therapy Pain Assessment Pain When Pain Assessed During Mobility Pain Present Pain Present Pain Reported Location Right Thigh Intensity 4 Scale Used Numeric (0 - 10) Description With Movement Pain Behaviors Facial Grimacing Pain Management Techniques Distraction,Modification of Treatment,Re-positioning, Timing of Activity with Medications Right Hip Intensity 4 Scale Used 4/10 at rest, 6/10 post activity. Description With Movement Pain Behaviors Facial Grimacing,Guarding Pain Management Techniques Distraction,Modification of Treatment,Re-positioning, Timing of Activity with Medications M4 PT-IP Mobility and Gait Start: 05/12/21 08:26 Freq: Status: Discharge Protocol: Document 05/15/21 10:25 SP (Rec: 05/15/21 16:49 SP [id number]) PT-Bed Mobility Assessment Supine to Sit Supine to Sit Moderate Assistance,1 Person Assistance,Head of Bed Elevated,Bedrails Sit to Supine Sit to Supine Moderate Assistance,1 Person Assistance,Bedrails Scooting Scooting to Edge of Bed Minimal Assistance PT-Transfer Assessment Sit to and From Stand Sit to and from Stand Minimal Assistance,Moderate Assistance,1 Person Assistance ,Use of Upper Extremities Equipment Transfer Assistive Device Gait Belt,Front Wheeled Walker Orthotic/Prosthetic Devices or Brace: No Transfers Transfer Destination Bed,Chair,Toilet Transfer Technique pt ambulated using FWW. Transfer Ability Level of Assist Contact Guard Assistance, Minimal Assistance,1 Person Assistance,Use of Upper Extremities Comments Mobility Comments DEVULCANIZER OPERATOR instructed post op ex: AP, glut set, quad set, hip abd/ heel slide Min A pre mobility, . Pt completed supine>sit Min A for RLE support and scoot pelvis with transfer pad as needed assist and BUE for self locomotion. Scoot EOB CG-Min A. Sit>stand Min A with good hand placement push from bed and RLE out in front. Pt required Min A initially for gait using FWW due to retro lean, educated body positioning in fWW near back legs and upright posture, improved step to gait to slight stagger end of tx. Pt ambulated R side bed to door then bathroom 40 ft Min> CGA using FWW. SPT in front toilet OT assisted and provided education in brief mgt 1 UE and WB other UE on FWW, CGA. Stand>sit onto toilet Mod A with grab bar use. Pt ableto complete self hygiene with cGA for safety due to lateral lean wt shift and self support on FWW support opp UE. Sit> stand Mod A w/ grab bar and push from toilet. Pt completed self brief mgt with instruction from OT, DEVULCANIZER OPERATOR provided CGA due to unsteady and tends to WB over LLE mostly. Pt ambulated to sink 10 ft FWW cGA. Contact sink for support and WB mostly over LLE due to pain into WB on RLE. Pt returned to bed, Min A for RLE into bed and education of use of gait belt for self support, but unable self at this time. Pt able to scoot to center pelvis/self inbed using BUE on bed rails and LLE. Call light and all needs in reach before left. Gait Assessment Gait Gait Assistance Required: Contact Guard Assist,Minimum Assistance,1 Person Assist Distance (Feet) 40 Able to Maintain Weight Bearing Status Yes During Gait Assistive Devices Assistive Device Gait Belt,Front Wheeled Walker Orthotic/Prosthetic Devices or Brace: No Gait Deviations General Gait Pattern Antalgic,Decreased Stride Length,Decreased Feet Clearance,Lateral Trunk Lean, Step-to Gait Factors Limiting Gait Function Factors Limiting Gait Function Decreased Activity Tolerance, Decreased Strength,Limited Range of Motion,Pain,Poor Balance,Poor Safety Awareness Comments Gait Comments See mobility comments. Stair Climbing Assessment Comments Stair Climbing Comments unable at this time, will need to assess prior to DC. PT-Balance Assessment Sitting Balance and Reactions Static Sitting Balance Ability Fair Dynamic Sitting Balance Ability Fair Standing Balance and Reactions Static Standing Balance Ability Fair Dynamic Standing Balance Ability Poor Device Used FWW M5 PT-IP Objective Assessments Start: 05/12/21 08:26 Freq: Status: Discharge Protocol: Document 05/13/21 16:16 [facility] (Rec: 05/13/21 16:44 [facility] [id number]) Orientation Orientation/Cognition Level of Alertness Alert Orientation Name,Age,Day of Week,Place, Situation Language Function Ability No Deficits Noted Safety Awareness Understands Safety Issues Memory Description No Deficits Noted M6 PT-IP Treatment Start: 05/12/21 08:26 Freq: Status: Discharge Protocol: Document 05/15/21 10:25 SP (Rec: 05/15/21 16:49 SP [id number]) Physical Therapy Treatment Exercises Exercises Ankle Pumps,Gluteal Sets,Quad Sets,Heel Slides Education Education Provided Safety M7 PT-IP Assessment and Plan Start: 05/12/21 08:26 Freq: Status: Discharge Protocol: Document 05/15/21 10:25 SP (Rec: 05/15/21 16:49 SP [id number]) PT Summary Assessment and Plan Potential Rehabilitation Potential Good Status of Condition at Evaluation Evolving Summary Impairments Pain,ROM,Strength,Balance, Coordination,Sensation,Tone, Cognition,Bed Mobility, Transfers,Gait,Activity Tolerance Progress Towards Goals Progressing Toward Goals,Slow Progress due to Pain,Slow Progress due to Activity Tolerance Assessment Summary Pt required Min -Mod A x1 during bed mobilitiy, transfers and CG- Min A x1 during gait using FWW. Pt would benefit from continued skilled rehab to improve strength and functional mobility. Goals Bed Mobility Goal Minimal Assistance Transfer Goal Contact Guard Assistance,Front Wheeled Walker Gait Goal Minimal Assistance,Front Wheel Walker Gait Distance 50 Other Goals 2 steps Days to Meet Goals 10 Frequency of Treatment Frequency Of Treatment Twice a Day Treatment Plan Physical Therapy Treatment Plan Bed Mobility Training,Transfer Training,Gait Training, Therapeutic Exercise,Hot or Cold Pack Other Recommendations and Next Treatment bed mob, transfers, LE ex, Focus further distance gait, stair mgt. Precautions Other Precautions WBAT RLE Recommendations To Nursing Amount of Assist Needed 1 Person Assist Discharge Recommendations PT Discharge Recommendations SNF Rehab Equipment Needed for Home Before FWW if pt goes home Discharge Transportation Needs at Discharge Wheelchair/Cabulance
--- NOTE | 2021-05-15 12:28 | CM.DPNOTE ---
Faxed signed med list and scripts to [facility] and received fax confirmation. Also [facility] called and said they do not need covid lab for today. Thuy Savage CM Asst.
--- NOTE | 2021-05-15 12:31 | CM.DANOTE ---
DCP Discharge SNF Per MD, pt is medically stable to d/c to SNF today. Per PT, pt made progress today and can now sit EOB and ambulate in the room and not requiring BLS transport but either cabulance or POV. SW called [facility] in [place] and admissions Rox confirms they can accept today but needs to be by 1430. ANAND Daley kindly faxing discharge packet to [facility] for review with signed med list and PASRR. SW met bedside with pt and also spoke to sister Melanie regarding options for transport and that BLS likely would not be covered by insurance as not medically neccessary and cabulance [place] not available [place] and PT cleared pt for safe transport via POV. Pt confirms that she is not agreeable with large out of pocket expense for transport and willing to d/c via Melanie's POV. SW updated [facility] on d/c to their facility before 1430 and RN completed d/c packet and pt's transport has arrived bedside and ready to go to [facility] SN[facility]. [facility] states no updated COVID needed prior to arrival. Plan: Patient to d/c to [facility] in [place] for ongoing rehab prior to safe return home. TYLER Gonzalez
--- NOTE | 2021-05-15 13:01 | PC.NURSE ---
Patient alert oriented, given suppository, no results, + flatus. Also given Docusate and and prune juice.
--- NOTE | 2021-05-15 13:18 | PC.NURSE ---
Patient taken via wc to vehicle driven by her partner, patient also given home minocycline that was stored in the pharmacy. Report called to [facility].
--- NOTE | 2021-05-15 14:30 | PT-IP ANOTE ---
Pt was not seen for pm therapy tx, discharged before arrived.
== END 2021-05-15 13:19 | DRG 482 ==
PROVIDERS: Family Medicine; Orthopaedic Surgery Orthopaedic Surgery of the Spine; Admitting Provider Nurse Practitioner Family; PCP Internal Medicine; Referring Provider Nurse Practitioner Family; Visit Provider Nurse Practitioner Family
PROC: 0QS606Z Reposition Right Upper Femur with Intramedullary Internal Fixation Device, Open Approach (ICD-10-PCS; CPT 27245; principal; 2021-05-12 09:30)
DX: M84.451A Pathological fracture, right femur, initial encounter for fracture (principal); L43.9 Lichen planus, unspecified; Z87.891 Personal history of nicotine dependence; Z20.822 Contact with and (suspected) exposure to COVID-19; H40.9 Unspecified glaucoma
CPT/HCPCS: 36415; 73502; 76000; 80053; 82962; 85025; 85610; 87635; 94760; 97110; 97116; 97162; 97166; 97530; 97535; C9803; C9113; J0690; J1100; J1170; J2405; J2704; J3010

== ENCOUNTER 2022-05-29 08:32 | Emergency (ER) | payer OTHER, SELFPAY ==
[2022-05-29 08:35] VITALS: BP 110/91; PULSE 55; RESP 16; TEMP 36.9; O2SAT 98; BMI 20.8
--- NOTE | 2022-05-29 08:41 | DI.RAD.S_ITS ---
PROCEDURE: XR CHEST 1V INDICATIONS: fall, vertigo x 4 days, left shoulder/humeral pain TECHNIQUE: One view of the chest was acquired. COMPARISON: None. FINDINGS: Surgical changes and devices: None. Lungs and pleura: Lungs are clear. No pleural effusions or pneumothorax. Mediastinum: Heart size at the upper limit of normal. Cardiomediastinal contour is otherwise unremarkable. Bones and chest wall: No suspicious bony lesions. Overlying soft tissues appear unremarkable. Left shoulder fracture findings are separately dictated IMPRESSION: No acute cardiothoracic abnormality. Left shoulder fracture findings separately dictated. Dictated by: Basim Medel M.D. on 05/29/2022 at 9:20 Approved by: Basim Medel M.D. on 05/29/2022 at 9:22
--- NOTE | 2022-05-29 08:41 | DI.CT.S_ITS ---
PROCEDURE: CT HEAD/BRAIN WO CON INDICATIONS: fall, vertigo x 4 days, left shoulder/humeral pain TECHNIQUE: Noncontrast 4.5 mm thick angled axial sections acquired from the foramen magnum to the vertex, with coronal and sagittal reformats. For radiation dose reduction, the following was used: automated exposure control, adjustment of mA and/or kV according to patient size. COMPARISON: None. FINDINGS: Image quality: Excellent. CSF spaces: Basal cisterns are patent. No extra-axial fluid collections. Ventricles are normal in size and shape. Brain: Mild global cerebral volume loss and chronic microvascular ischemic changes. No midline shift. No intracranial masses or hemorrhage. Edwards-white matter interface is normal. Skull and face: Calvarium and visualized facial bones are intact, without suspicious lesions. Sinuses: Visualized sinuses and mastoids are clear. IMPRESSION: No acute intracranial finding. Dictated by: Faheem Muse M.D. on 05/29/2022 at 9:13 Approved by: Faheem Muse M.D. on 05/29/2022 at 9:13
--- NOTE | 2022-05-29 08:41 | DI.RAD.S_ITS ---
PROCEDURE: XR SHOULDER LT MIN 2V INDICATIONS: fall, vertigo x 4 days, left shoulder/humeral pain TECHNIQUE: 2 views of the shoulder were acquired. COMPARISON: None. FINDINGS: Bones: Slightly comminuted fracture involving surgical neck of humeral head is seen with anterior and medial displacement of proximal humeral shaft and mild overlapping at fracture site. Fracture line likely extending to base of greater and lesser tuberosities. No suspicious bony lesions. Visualized ribs appear intact. Soft tissues: No suspicious soft tissue calcifications. IMPRESSION: Acute displaced and slightly comminuted and impacted fracture involving surgical neck of proximal humerus as above. Dictated by: Chirag Louis M.D. on 05/29/2022 at 9:20 Approved by: Chirag Louis M.D. on 05/29/2022 at 9:21
--- NOTE | 2022-05-29 08:42 | ED.FALL ---
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 Patient states she developed vertigo symptoms overnight Thursday into Thursday, the 26 of May which have been persistent although not as intense. She states that she had similar symptoms in the past and had been given exercises which improved her symptoms. Patient states that today she had gotten up to go to the bathroom and then go to the doctor's her symptoms have been persisting when she lost her balance secondary to her vertigo symptoms and fell down approximately 7 stairs. Patient denies hitting her head. She denies headache, neck pain, no chest abdomen or pelvis pain. She has pain in her left shoulder biceps region. She describes some numbness in her left hand during transport. Patient denies any other injuries. Patient denies any chest pain or shortness of breath no nausea or vomiting. She denies any dysuria, urgency or frequency. No diarrhea constipation. Denies pain or injury to her lower extremities. She is not had any facial droop, difficulties with speech, numbness or tingling or weakness during this week with her vertigo symptoms. She has had right hip repair after a fall a year ago. She is allergic to Macrobid and codeine. No tobacco, alcohol couple times a week, no illicit. She lives with her partner. Her primary care is through [facility] in [facility]. Related Data Home Medications Medication Instructions Recorded Confirmed ascorbate calcium (vitamin C) 500 1 gram PO DAILY 11/18/18 05/12/21 mg tablet cetirizine 10 mg capsule (Zyrtec) 10 mg PO DAILY 11/18/18 05/12/21 cholecalciferol (vitamin D3) 25 500 unit PO DAILY 11/18/18 05/12/21 mcg (1,000 unit) capsule cranberry 400 mg capsule 400 mg PO DAILY 11/18/18 05/12/21 hydroxychloroquine 200 mg tablet 200 mg PO Q OTHER DAY 11/18/18 05/11/21 (Plaquenil) vitamins A,C,C-qmqo-pyqnjj 7,160 2 tab PO BID 11/18/18 05/12/21 unit-113 mg-100 unit tablet (PreserVision AREDS) finasteride 5 mg tablet 5 mg PO DAILY 05/11/21 05/11/21 minocycline 50 mg capsule 50 mg PO BID 05/11/21 05/11/21 dorzolamide 22.3 mg-timolol 6.8 1 drp EYE-BOTH BID 05/12/21 05/12/21 mg/mL eye drops (Cosopt) Previous Rx's Medication Instructions Recorded oxycodone 5 mg tablet 5 mg PO Q4H PRN pain #30 tabs 05/13/21 acetaminophen 325 mg tablet 650 mg PO Q4HR PRN Fever/Mild Pain 05/15/21 (1-3) #10 tabs aspirin 81 mg tablet,delayed 81 mg PO BID #10 tabs 05/15/21 release bisacodyl 10 mg rectal suppository 10 mg AR PRN PRN Constipation #12 05/15/21 ea docusate sodium 100 mg capsule 100 mg PO BID PRN Constipation #10 05/15/21 (DOK) caps meclizine 25 mg tablet 25 mg PO QID PRN dizziness #20 tabs 05/29/22 oxycodone 5 mg tablet 5 mg PO QID PRN pain #20 tabs 05/29/22 Allergies Allergy/AdvReac Type Severity Reaction Status Date / Time nitrofurantoin Allergy Anaphylaxis Verified 05/29/22 08:42 [From Macrobid] codeine AdvReac difficulty Verified 05/29/22 08:42 waking up Review of Systems Review of Systems ROS Unobtainable: All systems reviewed & are unremarkable except as noted in HPI and below Patient History Medical History Glaucoma Lichen planopilaris Macular degeneration Surgical History History of left cataract surgery History of partial hysterectomy Family History Sister Diabetes mellitus Mother Stroke Hypertension Father Stroke Cancer Glaucoma Social History marital status: household members: significant other occupational status: previously employed Smoking Status: Never smoker alcohol intake: current substance use type: does not use Smoking Status: Never smoker alcohol intake frequency: a few times a week Substance Use Type: does not use Exam Narrative Exam Narrative: GEN: C-collar C-collar on arrival. Patient appears in mild distress. HEAD: No evidence of trauma, no raccoon/Hansen sign. NECK: Nontender, painless range of motion, trachea midline Negative Nexus criteria, there is no midline line tenderness, distracting injury, altered mental status, neuro deficit, recent EtOH. EYES: PERRLA, EOMI ENT: External inspection normal, trachea is midline, TM's are normal no hemotypanum she does have some slight fluid bilaterally but no erythema or bulge. Nares are clear, no septal hematoma, no dental or oral injury, airway is normal and with normal occlusion, No bony tenderness RESP: Chest is nontender and has symmetric movement, no ecchymosis, breath sounds are normal no crackles, wheezes or rales CVS: Heart sounds are normal, no murmur noted, No JVD. ABG/GI: Nontender, soft, normal bowel sounds, no distention, no organomegaly, pelvic rock is negative NEURO: Oriented AOx3, neuro is grossly intact, sensation and motor is normal all 4 extremities moving, cranial nerves II through XII are intact, GCS is 15 PSYCH: Normal mood and affect SKIN: Intact, warm and dry, no crepitus and without decubitus BACK: No CVA tenderness, no vertebral tenderness, no step-off's, no crepitus EXT: Patient has left shoulder pain, placed in a sling currently, hips are nontender, no pedal edema, normal color and temperature. Normal range of motion bilateral lower extremities and right upper extremity. patient has 2+ pulses in all 4 extremities. Sensation intact in all 4 extremities. Patient has equal compressed gases tester bilaterally with normal abduction and adduction, flexion/extension of left hand fingers. Initial Vital Signs Initial Vital Signs: Vital Signs Temperature 98.4 F 05/29/22 08:35 Pulse Rate 55 L 05/29/22 08:35 Respiratory Rate 16 05/29/22 08:35 Blood Pressure 110/91 H 05/29/22 08:35 Pulse Oximetry 98 05/29/22 08:35 Oxygen Delivery Method 05/29/22 08:35 Scores GCS [place] coma scale eye opening: Spontaneous Joo coma scale verbal response: Orientated [place] coma scale motor response: Obey commands Joo coma scale total score: 15 Nexus Score for C-Spine Focal Neurologic deficit present: No Midline spinal tenderness present: No Altered level of conciousness present: No Intoxication present: No Distracting Injury Present: No Nexus Criteria for C-spine: 0 Course Orders Ordered: Discontinued Medications Acetaminophen (Acetaminophen 325 Mg Tablet) 975 mg PO NOW ONE Stop: 05/29/22 08:42 Last Admin: 05/29/22 09:36 Dose: Not Given Documented By: GAGE Hydromorphone HCl (Hydromorphone 0.5 Mg Inj) 0.5 mg IV NOW ONE Stop: 05/29/22 10:04 Last Admin: 05/29/22 10:06 Dose: 0.5 mg Documented By: GAGE Meclizine HCl (Meclizine Hcl 12.5 Mg Tablet) 25 mg PO NOW ONE Stop: 05/29/22 10:30 Last Admin: 05/29/22 10:51 Dose: 25 mg Documented By: GAGE Morphine Sulfate (Morphine 4 Mg/Ml Inj) 4 mg IV NOW ONE Stop: 05/29/22 09:24 Last Admin: 05/29/22 09:27 Dose: 4 mg Documented By: GAGE Ondansetron HCl (Ondansetron 4 Mg/2 Ml Inj) 4 mg IV Q6HR PRN PRN Reason: Nausea And Vomiting Last Admin: 05/29/22 09:28 Dose: 4 mg Documented By: GAGE Oxycodone HCl (Oxycodone Ir 5 Mg Tablet) 10 mg PO NOW ONE Stop: 05/29/22 12:16 Last Admin: 05/29/22 12:42 Dose: 10 mg Documented By: GAGE Reevaluation(s) Reevaluation #1: Patient pain much improved after patient placed in sling more upright and additional dose of pain medication. She is neurovascularly intact on recheck. Discussed with patient if she is able to ambulate safely can discharge home if not she may need to come in for fall precautions. Plan for ambulation trial after short period of time once patient has equilibrated with her pain medications better. Time: 11:15 Consultations Consultation #1: Dr. Hdialgo, plan for sling and follow up with orthopedic surgery as outpatient. Time: 11:23 Vital Signs Vital signs: Vital Signs - 8 hr 05/29/22 13:29 Pulse Rate 62 Respiratory Rate 18 Blood Pressure 175/91 H Pulse Oximetry 96 - Fall Lab Data Result diagrams: 05/29/22 08:45 05/29/22 08:45 Labs: Lab Results 05/29/22 05/29/22 Range/Units 08:45 08:45 WBC 7.4 (4.5-11.0) X10^3/uL RBC 4.27 (4.0-5.2) X10^6/uL Hgb 12.5 (12.0-16.0) g/dL Hct 38.3 (36-46) % MCV 89.7 (80-100) fL MCH 29.3 (26-34) PG MCHC 32.7 (30-36) % RDW 13.6 (11.6-14.8) % Plt Count 167 (150-400) X10^3/uL Neut % (Auto) 77.1 H (50-75) % Lymph % (Auto) 13.5 L (25-40) % Marin % (Auto) 7.3 (3-14) % Eos % (Auto) 1.5 L (2-4) % Baso % (Auto) 0.6 (0-2) % Neut # (Auto) 5700 (9613-2653) /uL Lymph # (Auto) 1000 L (9718-6029) /uL Marin # (Auto) 500 (0-900) /uL Eos # (Auto) 100 (0-450) /uL Baso # (Auto) 0 (0-100) /uL Sodium 140 (137-145) mmol/L Potassium 4.0 (3.4-5.1) mmol/L Chloride 110 H (98-107) mmol/L Carbon Dioxide 24 (22-32) mmol/L BUN 9 (7-17) mg/dL Creatinine 0.82 (0.52-1.04) mg/dL Estimated GFR > 60 (>60) mL/min BUN/Creatinine Ratio 11.0 (6-22) Glucose 124 H (80-110) mg/dL Calcium 9.0 (8.4-10.2) mg/dL Total Bilirubin 0.7 (0.2-1.3) mg/dL AST 35 (14-36) IU/L ALT 33 (<35) IU/L Alkaline Phosphatase 66 (38-126) U/L Total Protein 6.7 (6.3-8.2) g/dL Albumin 3.9 (3.5-5.0) g/dL Globulin 2.8 (1.7-4.1) g/dL Albumin/Globulin Ratio 1.4 (1.0-2.8) Lipase 170 (23-300) U/L Imaging Data CT scan - head: Radiologist's Impression: Close Head CT (Signed) Faheem Muse - 05/29/22 Launch?[address] [address] [address] Scan Report Signed Patient: Libby Gupta MR#: [id number] : 1945 Acct:[id number] Age/Sex: 76 / F Date of Service: 05/29/22 Loc: ED Accession Number: [id number] ?? Procedure: CT head/brain wo con Ordering Provider: Jessica Ott D.O. PROCEDURE:? CT HEAD/BRAIN WO CON ? INDICATIONS:? fall, vertigo x 4 days, left shoulder/humeral pain ? TECHNIQUE:? Noncontrast 4.5 mm thick angled axial sections acquired from the foramen magnum to the vertex, with coronal and sagittal reformats.? For radiation dose reduction, the following was used:? automated exposure control, adjustment of mA and/or kV according to patient size.? ? COMPARISON:? None. ? FINDINGS:? Image quality:? Excellent.? ? CSF spaces:? Basal cisterns are patent.? No extra-axial fluid collections.? Ventricles are normal in size and shape.? ? Brain:? Mild global cerebral volume loss and chronic microvascular ischemic changes.? No midline shift.? No intracranial masses or hemorrhage.? Edwards-white matter interface is normal.? ? Skull and face:? Calvarium and visualized facial bones are intact, without suspicious lesions.? ? Sinuses:? Visualized sinuses and mastoids are clear.? ? IMPRESSION:? No acute intracranial finding. ? ? Dictated by: Faheem Muse M.D. on 05/29/2022 at 9:13 ? ? Approved by: Faheem Muse M.D. on 05/29/2022 at 9:13?? Chest x-ray: Radiologist's Impression: Close Shoulder X-Ray (Signed) Chirag Louis - 05/29/[address] (Signed) Faheem Muse - 05/29/22 Chest X-Ray (Signed) Basim Medel - 05/29/22 Hip X-Ray (Signed) Josh Thorne - 05/12/21 Telemetry Strips 05/11/21 Thoracic Spine MRI (Signed) Julio César Samuels - 02/21/19 Launch?[place] [address] XRay Report Signed Patient: Libby Gupta MR#: [id number] : 1945 Acct:[id number] Age/Sex: 76 / F Date of Service: 05/29/22 Loc: ED Accession Number: [id number] ?? Procedure: XR chest 1V Ordering Provider: Jessica Ott D.O. PROCEDURE:? XR CHEST 1V ? INDICATIONS:? fall, vertigo x 4 days, left shoulder/humeral pain ? TECHNIQUE:? One view of the chest was acquired.? ? COMPARISON:? None. ? FINDINGS:? ? Surgical changes and devices:? None.? ? Lungs and pleura:? Lungs are clear.? No pleural effusions or pneumothorax.? ? Mediastinum:? Heart size at the upper limit of normal.? Cardiomediastinal contour is otherwise unremarkable. ? Bones and chest wall:? No suspicious bony lesions.? Overlying soft tissues appear unremarkable.? Left shoulder fracture findings are separately dictated ? IMPRESSION:? No acute cardiothoracic abnormality.? Left shoulder fracture findings separately dictated. ? ? Dictated by: Basim Medel M.D. on 05/29/2022 at 9:20 ? ? Approved by: Basim Medel M.D. on 05/29/2022 at 9:22?? Extremity x-ray #1: Radiologist's Impression: Close Shoulder X-Ray (Signed) Chirag Louis - 05/29/[address] (Signed) Faheem Muse - 05/29/22 Chest X-Ray (Signed) Basim Medel - 05/29/22 Hip X-Ray (Signed) Josh Thorne - 05/12/21 Telemetry Strips 05/11/21 Thoracic Spine MRI (Signed) Julio César Samuels - 02/21/19 Launch?[address] [address] XRay Report Signed Patient: Libby Gupta MR#: [id number] : 1945 Acct:[id number] Age/Sex: 76 / F Date of Service: 05/29/22 Loc: ED Accession Number: [id number] ?? Procedure: XR shoulder LT min 2V Ordering Provider: Jessica Ott D.O. PROCEDURE:? XR SHOULDER LT MIN 2V ? INDICATIONS:? fall, vertigo x 4 days, left shoulder/humeral pain ? TECHNIQUE:? 2 views of the shoulder were acquired.? ? COMPARISON:? None. ? FINDINGS:? ? Bones:? Slightly comminuted fracture involving surgical neck of humeral head is seen with anterior and medial displacement of proximal humeral shaft and mild overlapping at fracture site.? Fracture line likely extending to base of greater and lesser tuberosities.? No suspicious bony lesions.? Visualized ribs appear intact.? ? Soft tissues:? No suspicious soft tissue calcifications.? ? IMPRESSION:? Acute displaced and slightly comminuted and impacted fracture involving surgical neck of proximal humerus as above.? ? ? Dictated by: Chirag Louis M.D. on 05/29/2022 at 9:20 ? ? Approved by: Chirag Louis M.D. on 05/29/2022 at 9:21?? [facility] Narrative Medical decision making narrative: This is a 76-year-old female with fall down 7 steps secondary to vertigo like symptoms. Patient denies hitting her but she is had persistent vertigo symptoms for 4 days which have been decreasing in intensity but have not resolved so head CT was ordered. C-spine is clinically cleared. Patient has pain of the left shoulder. Chest and shoulder x-ray were obtained. Labs are obtained as she is had this persistent vertigo to evaluate for electrolyte abnormalities which show no major changes. Xray shows left proximal humeral fracture. Plan for sling, pain management and follow-up with orthopedic surgery, I spoke with Dr. Hidalgo from orthopedics who agrees with plan. Patient had ambulation in the trial which he passed without assistance. She is more comfortable returning home that her partner. We discussed possibly having home health care or visiting angels. Things they can do to help with ambulation they do have multiple stairs in their home but patient normally walks unassisted. We also discussed options for pain management ways to dose her medications as well as treat her vertigo symptoms. Patient and family were encouraged to return if she is felt to be unsafe at home. We also discussed referral to ENT if her vertigo is persisting. Patient also given senior resources for possible home health care if they would like to pursue this. Discharge Plan Departure Patient Disposition: Home Clinical Impression: Vertigo, Left humeral fracture Instructions: DI for Humeral Fracture Activity Restrictions/Additional Instructions: Follow-up with orthopedic surgery in the next week. Call today or tomorrow to set up a follow-up appointment. Referral number is included below. Also included is referral for ENT if your vertigo continues to persist. You may take Tylenol up to a 1000 mg every 6 hours as needed for pain. If inadequate for pain control you may take 1-2 tablets of oxycodone every 6 hours. This medication can make you sleepy do not drive, perform hazardous activities or make any major decisions while taking it. This medication will make you constipated please take a stool softener once to twice daily until stools are soft and regular. You can take meclizine or Antivert with this medication. Meclizine is for your vertigo symptoms. Prescription sent to [facility] in [place]. Elevated affected body part to decrease swelling. OK to use ice pack on the affected body part. Use for 15-20 minutes each time, for 5-6x per day. If you develop worsening pain, numbness, tingling, discoloration of the affected body part, adjust sling as needed, and either see your doctor for an urgent re-assessment, or return to the Emergency Department. Return to the Emergency Department for any new or worsening symptoms. Prescriptions: New oxycodone 5 mg tablet 5 mg PO QID PRN (Reason: pain) Qty: 20 0RF meclizine 25 mg tablet 25 mg PO QID PRN (Reason: dizziness) Qty: 20 0RF No Action ascorbate calcium (vitamin C) 500 mg tablet 1 gram PO DAILY cranberry 400 mg capsule 400 mg PO DAILY hydroxychloroquine [Plaquenil] 200 mg tablet 200 mg PO Q OTHER DAY cholecalciferol (vitamin D3) 1,000 unit capsule 500 unit PO DAILY Zyrtec 10 mg capsule 10 mg PO DAILY vitamins A,C,H-cnlm-jaxres [PreserVision AREDS] 7,160-113-100 [id number]-[id number] tablet 2 tab PO BID finasteride 5 mg tablet 5 mg PO DAILY minocycline 50 mg Capsule 50 mg PO BID dorzolamide-timolol [Cosopt] 22.3-6.8 mg/mL drops 1 drp EYE-BOTH BID oxycodone 5 mg tablet 5 mg PO Q4H PRN (Reason: pain) Qty: 30 0RF aspirin 81 mg Tablet,Delayed Release (Dr/Ec) 81 mg PO BID Qty: 10 0RF acetaminophen 325 mg Tablet 650 mg PO Q4HR PRN (Reason: Fever/Mild Pain (1-3)) Qty: 10 0RF bisacodyl 10 mg Suppository 10 mg AR PRN PRN (Reason: Constipation) Qty: 12 0RF docusate sodium [DOK] 100 mg Capsule 100 mg PO BID PRN (Reason: Constipation) Qty: 10 0RF Referrals: Bay Mark MD [Physician] - Nhi Handy MD [Primary Care Provider] - Jason Hidalgo MD [Physician] - Visit Report Forms: Patient Portal/API
[2022-05-29 09:04] LABS: Add Manual Diff / Slide Review NO; Basophils Absolute Auto 0 /uL (0-100); Basophils Percent Auto 0.6 % (0-2); Eosinophils Absolute Auto 100 /uL (0-450); Eosinophils Percent Auto 1.5 % (2-4); Hematocrit 38.3 % (36-46); Hemoglobin 12.5 g/dL (12.0-16.0); Lymphocytes Absolute Auto 1000 /uL (1100-4500); Lymphocytes Percent Auto 13.5 % (25-40); Mean Corpuscular HGB Conc 32.7 % (30-36); Mean Corpuscular Hemoglobin 29.3 PG (26-34); Mean Corpuscular Volume 89.7 fL (80-100); Monocytes Absolute Auto 500 /uL (0-900); Monocytes Percent Auto 7.3 % (3-14); Neutrophils Absolute Auto 5700 /uL (1500-7000); Neutrophils Percent Auto 77.1 % (50-75); Platelet Count 167 X10^3/uL (150-400); Red Blood Cell Count 4.27 X10^6/uL (4.0-5.2); Red Cell Distribution Width 13.6 % (11.6-14.8); White Blood Cell Count 7.4 X10^3/uL (4.5-11.0)
[2022-05-29 09:17] LABS: Alanine Aminotransferase 33 IU/L (<35); Albumin 3.9 g/dL (3.5-5.0); Albumin Globulin Ratio 1.4 (1.0-2.8); Alkaline Phosphatase 66 U/L (38-126); Aspartate Aminotransferase 35 IU/L (14-36); Bilirubin Total 0.7 mg/dL (0.2-1.3); Blood Urea Nitrogen 9 mg/dL (7-17); Carbon Dioxide 24 mmol/L (22-32); Chloride 110 mmol/L (98-107); Estimated Glomerular Filt Rate > 60 mL/min (>60); Globulin 2.8 g/dL (1.7-4.1); Glucose 124 mg/dL (80-110); HEMOLYSIS < 15 (0-50); Lipase 170 U/L (23-300); Sodium 140 mmol/L (137-145); Total Protein 6.7 g/dL (6.3-8.2)
[2022-05-29] MEDS: MORPHINE 4 MG/ML INJ IV (09:27)
[2022-05-29] MEDS: ONDANSETRON 4 MG/2 ML INJ IV (09:28)
--- NOTE | 2022-05-29 09:34 | PC.NURSE ---
pt returned to room from radiology, c/o acute pain 07/19 to L shoulder. MD notified, new orders received.
--- NOTE | 2022-05-29 09:47 | PC.NURSE ---
pt reports mild relief of pain s/p social media project manager. reports needing to use BR; purewick applied and educated.
--- NOTE | 2022-05-29 10:02 | PC.NURSE ---
pt reporting continued pain s/p remediation bioanalytics consultant; MD notified. MD at bedside with pt and family to review POC.
[2022-05-29] MEDS: HYDROMORPHONE 0.5 MG INJ IV (10:06)
[2022-05-29] MEDS: MECLIZINE HCL 12.5 MG TABLET 25 MG PO (10:51)
[2022-05-29] MEDS: OXYCODONE IR 5 MG TABLET 10 MG PO (12:42)
[2022-05-29 13:29] VITALS: BP 175/91; PULSE 62; RESP 18; O2SAT 96
== END 2022-05-29 13:32 | disposition home or self-care (01) ==
PROVIDERS: Emergency Provider Emergency Medicine; PCP Internal Medicine
DX: R42 Dizziness and giddiness (principal); S42.212A Unspecified displaced fracture of surgical neck of left humerus, initial encounter for closed fracture; W19.XXXA Unspecified fall, initial encounter
CPT/HCPCS: 70450; 71045; 73030; 80053; 83690; 85025; 96374; 96375; 99284; J1170; J2270; J2405

== ENCOUNTER 2024-02-15 10:30 | Outpatient (RCR) | payer OTHER, SELFPAY ==
--- NOTE | 2024-02-10 15:55 | PT.OIE ---
Current Diagnoses Unsteadiness on feet (02/10/24) Other abnormalities of gait and mobility (02/10/24) Repeated falls (02/10/24) Dizziness and giddiness (02/10/24) Past Medical History (Last Reviewed 05/29/22 @ 08:45 by Jessica Ott DO) Glaucoma Lichen planopilaris Macular degeneration Past Surgical History (Last Reviewed 05/29/22 @ 08:45 by Jessica Ott DO) History of left cataract surgery History of partial hysterectomy Visit Care Team Role Provider Type Nhi Handy MD Primary Care Provider Non-Staff Specialty: Medical Address: [id number], [place], [address] Email: Blue Moreno MD Attending Provider Non-Staff Referring Provider Specialty: Neurology Address: [address] [place] [address], [id number] Email: Physical Therapy Initial Evaluation PT-OP-A Visit Information Start: 02/10/24 15:27 Freq: Status: Active Protocol: Document 02/10/24 14:30 DCW (Rec: 02/10/24 15:43 DCW [id number]) Out-Patient Physical Therapy Visit Information Visit Information Visit Type Initial Evaluation Visit Start Time 14:30 Visit Stop Time 15:25 Visit Number 1 Number of ACCOUNT ADMINISTRATOR Visits 0 Evaluation Information Evaluation Date 02/10/24 PT-OP-B Current Condition Start: 02/10/24 15:27 Freq: Status: Active Protocol: Document 02/10/24 14:30 DCW (Rec: 02/10/24 15:43 DCW [id number]) Current Condition History of Current Condition Onset Date One year history Current Complaints Dizziness/unsteadiness History of Current Condition Pt is a 78 year old female complaining of a one year history of motion-induced vertigo, imbalance, and light- headedness. Pt reports episodes last 1-2 minutes. Pt traces symptoms back to incident trying to pull a branch down out of a push when an attached larger branch came down on her head. Pt then woke up that night with nausea, vomiting, and a terrible headache. Admits that in the morning, they were getting around to try to get to the local clinic, and in the process she fell down the stairs, sustaining a second head injury and breaking her shoulder. She has had unsteadiness and dizziness since that time, and after getting her shoulder better, was finally able to get seen for her imbalance. Reports she was seen by an ENT, testing was unremarkable, and then saw a neurologist, who recommended vestibular PT. Symptoms are typically provoked by positional changes , head turns, and rolling in bed. Pt denies recent hearing changes, tinnitus, diplopia, dysarthria, discoordination, or decreased mentation/ consciousness. Pt reports symptoms are waxing/waning in nature. Pt denies hx of HTN, hyperlipidemia, diabetes, arrhythmia, seizure, migraines , back/neck problems, CVA, anxiety/panic disorders, depression, or excessive smoking or drinking. Treatment Goals Patient/Caregiver Goals Improve stability, decrease dizziness PT-OP-C Subjective Start: 02/10/24 15:27 Freq: Status: Active Protocol: Document 02/10/24 14:30 DCW (Rec: 02/10/24 15:43 DCW [id number]) OP-PT Subjective Patient Comments Patient Comments The symptoms are a little unspecific, it's really been more like odd experiences. Patient Reported Progress Improving Patient Questionnaires Dizziness Handicap Inventory DHI Score 32% DHI Functional Impairment 20 to 39% Impaired (Score 20- 39) PT-OP-O Vestibular Start: 02/10/24 15:27 Freq: Status: Active Protocol: Document 02/10/24 14:30 DCW (Rec: 02/10/24 15:43 DCW [id number]) Vestibular Assessment Auditory Tests Moy Test Within normal limits Rinne Test Negative Air Conduction Results Equal Visual Testing Smooth Pursuits Horizontal WNL Smooth Pursuits Vertical WNL Saccades Horizontal WNL Heave Test Negative Thrust Head Negative DVA (Line Degradation) 0 Spontaneous Nystagmus Negative Positional Testing [place]-Hallpike Negative Left,Negative Right Rolling Test Negative Left,Negative Right Vestibular Function Tests CTSIB Position 1 Slight Sway CTSIB Position 2 Mild Sway CTSIB Position 3 Mild Sway CTSIB Position 4 Moderate Sway CTSIB Position 5 Fall Reaction CTSIB Position 6 Fall Reaction PT-OP-Q Treatments Start: 02/10/24 15:27 Freq: Status: Active Protocol: Document 02/10/24 14:30 DCW (Rec: 02/10/24 15:43 DCW [id number]) Self-Care/Home Management Treatment Education Other Education Extensive patient education on Inner Ear A&P, potential DDx, and expectations for treatment PT-OP-T Assessment and Plan Start: 02/10/24 15:27 Freq: Status: Active Protocol: Document 02/10/24 14:30 DCW (Rec: 02/10/24 15:54 DCW [id number]) Physical Therapy Assessment Rehab Potential Rehabilitation Potential Good Evaluation Complexity Number of Personal Factors/Comorbidities 3 or More Number of Body Systems Impaired 3 Clinical Presentation at Evaluation Unstable Impairments Impairments Balance,Functional Activities, Functional Mobility,Vestibular Goals Three Impairment Pt demonstrates fall reaction in positions V and of the CTSIB Fdc Goal (LTG) Pt to demonstrate ability to perform CTSIB positions with Moderate sway at worst in order to show progress decreasing reliance on visual stability. LTG Duration 04/11/24 Two Impairment Pt scores a 32% disability on the Dizziness Handicap Inventory Event Marketing Specialist Goal (LTG) PT to decrease DHI score by at least 12% to 20% disability in order to demonstrate improved subjective functional mobility LTG Duration 04/11/24 One Impairment Pt does not have an appropriate home exercise program Short Term Goal (STG) Pt to be independent and compliant with an appropriate HEP STG Duration 03/11/24 Assessment Summary Assessment Pt presents with signs and symptoms of non-specific instability and imbalance. Pt vestibular testing completely unremarkable today, no line degradation during DVA testing , no bilateral loss during thrust/heave tests, no subjective symptoms or nystagmus during positional testing. Pt did demonstrate fall reaction in CTSIB positions V and , which may suggest over reliance on vision for balance and stability. Some of pt's subjective complaints could be suggestive of BPPV, especially after it began with a head injury. May also be suffering long-term post- concussion effects. Either way , pt will more than likely benefit from skilled therapeutic intervention focusing on vestibular rehabilitation to decrease sensitivity to visual motion and positional changes. Due to frequency of false negatives during positional testing, may also benefit from frequent retesting to help to rule in/ out potential for BPPV. Physical Therapy Plan Frequency and Duration Frequency of Treatment 2x/Week Plan of Care Start Date 02/10/24 Plan of Care End Date 04/11/24 Therapeutic Interventions Therapeutic Interventions Balance Training,Coordination Training,Gait Training,Home Exercise Program,Manual Therapy,Neuromuscular Re- education,Patient/Caregiver Education,Self-Care/Home Management,Therapeutic Activities,Therapeutic Exercises,Vestibular Rehabilitation Next Visit Focus/Plan Next Note Type Treatment Note Next Visit Plan Further positional testing, balance training, vestibular adaptive/habituation exercises
--- NOTE | 2024-02-10 15:55 | PT.OPPOC ---
Physical, Occupational & Speech Therapy At [facility] Current Diagnoses Unsteadiness on feet (02/10/24) Other abnormalities of gait and mobility (02/10/24) Repeated falls (02/10/24) Dizziness and giddiness (02/10/24) Visit Care Team Role Provider Type Nhi Handy MD Primary Care Provider Non-Staff Specialty: Medical Address: [id number], [place], [address] Email: Blue Moreno MD Attending Provider Non-Staff Referring Provider Specialty: Neurology Address: [address] [place] [address], [id number] Email: Plan Of Care PT-OP-T Assessment and Plan Start: 02/10/24 15:27 Freq: Status: Active Protocol: Document 02/10/24 14:30 DCW (Rec: 02/10/24 15:54 DCW [id number]) Physical Therapy Assessment Rehab Potential Rehabilitation Potential Good Evaluation Complexity Number of Personal Factors/Comorbidities 3 or More Number of Body Systems Impaired 3 Clinical Presentation at Evaluation Unstable Impairments Impairments Balance,Functional Activities, Functional Mobility,Vestibular Goals Three Impairment Pt demonstrates fall reaction in positions V and of the CTSIB [place] Goal (LTG) Pt to demonstrate ability to perform CTSIB positions with Moderate sway at worst in order to show progress decreasing reliance on visual stability. LTG Duration 04/11/24 Two Impairment Pt scores a 32% disability on the Dizziness Handicap Inventory Change Management Specialist Goal (LTG) PT to decrease DHI score by at least 12% to 20% disability in order to demonstrate improved subjective functional mobility LTG Duration 04/11/24 One Impairment Pt does not have an appropriate home exercise program Short Term Goal (STG) Pt to be independent and compliant with an appropriate HEP STG Duration 03/11/24 Assessment Summary Assessment Pt presents with signs and symptoms of non-specific instability and imbalance. Pt vestibular testing completely unremarkable today, no line degradation during DVA testing , no bilateral loss during thrust/heave tests, no subjective symptoms or nystagmus during positional testing. Pt did demonstrate fall reaction in CTSIB positions V and , which may suggest over reliance on vision for balance and stability. Some of pt's subjective complaints could be suggestive of BPPV, especially after it began with a head injury. May also be suffering long-term post- concussion effects. Either way , pt will more than likely benefit from skilled therapeutic intervention focusing on vestibular rehabilitation to decrease sensitivity to visual motion and positional changes. Due to frequency of false negatives during positional testing, may also benefit from frequent retesting to help to rule in/ out potential for BPPV. Physical Therapy Plan Frequency and Duration Frequency of Treatment 2x/Week Plan of Care Start Date 02/10/24 Plan of Care End Date 04/11/24 Therapeutic Interventions Therapeutic Interventions Balance Training,Coordination Training,Gait Training,Home Exercise Program,Manual Therapy,Neuromuscular Re- education,Patient/Caregiver Education,Self-Care/Home Management,Therapeutic Activities,Therapeutic Exercises,Vestibular Rehabilitation Next Visit Focus/Plan Next Note Type Treatment Note Next Visit Plan Further positional testing, balance training, vestibular adaptive/habituation exercises Plan of Care Dates Plan of Care Start Date 02/10/24 Plan of Care End Date 04/11/24 Electronically Signed by: Rylan Maravilla, PT 02/10/24 [id number] If you are in agreement with this Plan of Care, please return a signed and dated copy. I have reviewed this Plan of Care and certify that the skilled therapy services above are required to meet the patient?s needs. Physician Signature Date Printed Name and Credentials Clinical Instructor Signature Printed Name and Credentials
--- NOTE | 2024-02-12 11:17 | PT.OTN ---
Current Diagnoses Unsteadiness on feet (02/12/24) Other abnormalities of gait and mobility (02/12/24) Repeated falls (02/12/24) Dizziness and giddiness (02/12/24) Physical Therapy Treatment Note PT-OP-A Visit Information Start: 02/10/24 15:27 Freq: Status: Active Protocol: Document 02/12/24 10:30 DCW (Rec: 02/12/24 11:17 DCW [id number]) Out-Patient Physical Therapy Visit Information Visit Information Visit Type Treatment Note Visit Start Time 10:30 Visit Stop Time 11:15 Visit Number 2 Number of PROCUREMENT COORDINATOR Visits 0 Evaluation Information Evaluation Date 02/10/24 PT-OP-B Current Condition Start: 02/10/24 15:27 Freq: Status: Active Protocol: Document 02/10/24 14:30 DCW (Rec: 02/10/24 15:43 DCW [id number]) Current Condition History of Current Condition Onset Date One year history Current Complaints Dizziness/unsteadiness History of Current Condition Pt is a 78 year old female complaining of a one year history of motion-induced vertigo, imbalance, and light- headedness. Pt reports episodes last 1-2 minutes. Pt traces symptoms back to incident trying to pull a branch down out of a push when an attached larger branch came down on her head. Pt then woke up that night with nausea, vomiting, and a terrible headache. Admits that in the morning, they were getting around to try to get to the local clinic, and in the process she fell down the stairs, sustaining a second head injury and breaking her shoulder. She has had unsteadiness and dizziness since that time, and after getting her shoulder better, was finally able to get seen for her imbalance. Reports she was seen by an ENT, testing was unremarkable, and then saw a neurologist, who recommended vestibular PT. Symptoms are typically provoked by positional changes , head turns, and rolling in bed. Pt denies recent hearing changes, tinnitus, diplopia, dysarthria, discoordination, or decreased mentation/ consciousness. Pt reports symptoms are waxing/waning in nature. Pt denies hx of HTN, hyperlipidemia, diabetes, arrhythmia, seizure, migraines , back/neck problems, CVA, anxiety/panic disorders, depression, or excessive smoking or drinking. Treatment Goals Patient/Caregiver Goals Improve stability, decrease dizziness PT-OP-C Subjective Start: 02/10/24 15:27 Freq: Status: Active Protocol: Document 02/12/24 10:30 DCW (Rec: 02/12/24 11:17 DCW [id number]) OP-PT Subjective Patient Comments Patient Comments Pt notes that she will frequently experience lightheadedness when sitting up/standing up. PT-OP-O Vestibular Start: 02/10/24 15:27 Freq: Status: Active Protocol: Document 02/10/24 14:30 DCW (Rec: 02/10/24 15:43 DCW [id number]) Vestibular Assessment Auditory Tests Moy Test Within normal limits Rinne Test Negative Air Conduction Results Equal Visual Testing Smooth Pursuits Horizontal WNL Smooth Pursuits Vertical WNL Saccades Horizontal WNL Heave Test Negative Thrust Head Negative DVA (Line Degradation) 0 Spontaneous Nystagmus Negative Positional Testing [place]-Hallpike Negative Left,Negative Right Rolling Test Negative Left,Negative Right Vestibular Function Tests CTSIB Position 1 Slight Sway CTSIB Position 2 Mild Sway CTSIB Position 3 Mild Sway CTSIB Position 4 Moderate Sway CTSIB Position 5 Fall Reaction CTSIB Position 6 Fall Reaction PT-OP-Q Treatments Start: 02/10/24 15:27 Freq: Status: Active Protocol: Document 02/12/24 10:30 DCW (Rec: 02/12/24 11:17 DCW [id number]) Therapeutic Activity Therapeutic Activity Orthostatics Comments Orthostatic Hypotension measurements: Supine: 142/70 Sittin/58 Standin/52 Manual Therapy Treatment Other Other Manual Treatments Positional testing Neuro Re-Education Treatment Balance Activities Tandem Details Tandem stance Foam Details X1, EC Surface AirEx PT-OP-T Assessment and Plan Start: 02/10/24 15:27 Freq: Status: Active Protocol: Document 02/12/24 10:30 DCW (Rec: 02/12/24 11:17 DCW [id number]) Physical Therapy Assessment Impairments Impairments Balance,Functional Activities, Functional Mobility,Vestibular Goals Three Impairment Pt demonstrates fall reaction in positions V and of the CTSIB Concrete Handler Goal (LTG) Pt to demonstrate ability to perform CTSIB positions with Moderate sway at worst in order to show progress decreasing reliance on visual stability. LTG Duration 04/11/24 Two Impairment Pt scores a 32% disability on the Dizziness Handicap Inventory Concrete Handler Goal (LTG) PT to decrease DHI score by at least 12% to 20% disability in order to demonstrate improved subjective functional mobility LTG Duration 04/11/24 One Impairment Pt does not have an appropriate home exercise program Short Term Goal (STG) Pt to be independent and compliant with an appropriate HEP STG Duration 03/11/24 Assessment Summary Assessment Pt orthostatic BPs did indicate potential issues, diastolic drop of 18 mmHg. Discussed importance of increasing water intake and pausing briefly after position changes to decrease potential for falls. Pt did have good response to vestibular exercises, pt instructed to add X1 exercises to HEP. Physical Therapy Plan Frequency and Duration Frequency of Treatment 2x/Week Plan of Care Start Date 02/10/24 Plan of Care End Date 04/11/24 Therapeutic Interventions Therapeutic Interventions Balance Training,Coordination Training,Gait Training,Home Exercise Program,Manual Therapy,Neuromuscular Re- education,Patient/Caregiver Education,Self-Care/Home Management,Therapeutic Activities,Therapeutic Exercises,Vestibular Rehabilitation Next Visit Focus/Plan Next Note Type Treatment Note Next Visit Plan Further positional testing, balance training, vestibular adaptive/habituation exercises
--- NOTE | 2024-02-15 11:17 | PT.OTN ---
Current Diagnoses Unsteadiness on feet (02/15/24) Other abnormalities of gait and mobility (02/15/24) Repeated falls (02/15/24) Dizziness and giddiness (02/15/24) Physical Therapy Treatment Note PT-OP-A Visit Information Start: 02/10/24 15:27 Freq: Status: Active Protocol: Document 02/15/24 10:30 DCW (Rec: 02/15/24 11:17 DCW [id number]) Out-Patient Physical Therapy Visit Information Visit Information Visit Type Treatment Note Visit Start Time 10:30 Visit Stop Time 11:15 Visit Number 3 Number of HUSBANDRY PERSON Visits 0 Evaluation Information Evaluation Date 02/10/24 PT-OP-B Current Condition Start: 02/10/24 15:27 Freq: Status: Active Protocol: Document 02/10/24 14:30 DCW (Rec: 02/10/24 15:43 DCW [id number]) Current Condition History of Current Condition Onset Date One year history Current Complaints Dizziness/unsteadiness History of Current Condition Pt is a 78 year old female complaining of a one year history of motion-induced vertigo, imbalance, and light- headedness. Pt reports episodes last 1-2 minutes. Pt traces symptoms back to incident trying to pull a branch down out of a push when an attached larger branch came down on her head. Pt then woke up that night with nausea, vomiting, and a terrible headache. Admits that in the morning, they were getting around to try to get to the local clinic, and in the process she fell down the stairs, sustaining a second head injury and breaking her shoulder. She has had unsteadiness and dizziness since that time, and after getting her shoulder better, was finally able to get seen for her imbalance. Reports she was seen by an ENT, testing was unremarkable, and then saw a neurologist, who recommended vestibular PT. Symptoms are typically provoked by positional changes , head turns, and rolling in bed. Pt denies recent hearing changes, tinnitus, diplopia, dysarthria, discoordination, or decreased mentation/ consciousness. Pt reports symptoms are waxing/waning in nature. Pt denies hx of HTN, hyperlipidemia, diabetes, arrhythmia, seizure, migraines , back/neck problems, CVA, anxiety/panic disorders, depression, or excessive smoking or drinking. Treatment Goals Patient/Caregiver Goals Improve stability, decrease dizziness PT-OP-C Subjective Start: 02/10/24 15:27 Freq: Status: Active Protocol: Document 02/15/24 10:30 DCW (Rec: 02/15/24 11:17 DCW [id number]) OP-PT Subjective Patient Comments Patient Comments It's going okay, its definitely better than it was originally. I feel not nearly as wobbly or unsteady on my feet, so its getting better, but I still find if I try to turn too fast, I start to tip, like my body isn't listening to my brain. PT-OP-O Vestibular Start: 02/10/24 15:27 Freq: Status: Active Protocol: Document 02/10/24 14:30 DCW (Rec: 02/10/24 15:43 DCW [id number]) Vestibular Assessment Auditory Tests Moy Test Within normal limits Rinne Test Negative Air Conduction Results Equal Visual Testing Smooth Pursuits Horizontal WNL Smooth Pursuits Vertical WNL Saccades Horizontal WNL Heave Test Negative Thrust Head Negative DVA (Line Degradation) 0 Spontaneous Nystagmus Negative Positional Testing [place]-Hallpike Negative Left,Negative Right Rolling Test Negative Left,Negative Right Vestibular Function Tests CTSIB Position 1 Slight Sway CTSIB Position 2 Mild Sway CTSIB Position 3 Mild Sway CTSIB Position 4 Moderate Sway CTSIB Position 5 Fall Reaction CTSIB Position 6 Fall Reaction PT-OP-Q Treatments Start: 02/10/24 15:27 Freq: Status: Active Protocol: Document 02/15/24 10:30 DCW (Rec: 02/15/24 11:17 DCW [id number]) Manual Therapy Treatment Other Other Manual Treatments Positional testing Neuro Re-Education Treatment Balance Activities Dynamic Gait Details Dynamic Gait Comments Horizontal Head Turns Vertical Head Turns Retro Ambulation Tandem Gait Vestibular Rehabilitation Corrective Saccades Details Eyes, then head Distance From Target Arm's length Speed as tolerated Position Seated X2 Viewing Details Target and head moving opposite directions Distance From Target Arm's length Speed as tolerated Position Seated X1 Viewing Details Static target, head turns Distance From Target Arm's length Speed as tolerated Position Seated VOR Retraining Details Head and target moving together Distance From Target Arm's length Speed as tolerated Position Seated PT-OP-T Assessment and Plan Start: 02/10/24 15:27 Freq: Status: Active Protocol: Document 02/15/24 10:30 DCW (Rec: 02/15/24 11:17 DCW [id number]) Physical Therapy Assessment Impairments Impairments Balance,Functional Activities, Functional Mobility,Vestibular Goals Three Impairment Pt demonstrates fall reaction in positions V and of the CTSIB Fdc Goal (LTG) Pt to demonstrate ability to perform CTSIB positions with Moderate sway at worst in order to show progress decreasing reliance on visual stability. LTG Duration 04/11/24 Two Impairment Pt scores a 32% disability on the Dizziness Handicap Inventory Fdc Goal (LTG) PT to decrease DHI score by at least 12% to 20% disability in order to demonstrate improved subjective functional mobility LTG Duration 04/11/24 One Impairment Pt does not have an appropriate home exercise program Short Term Goal (STG) Pt to be independent and compliant with an appropriate HEP STG Duration 03/11/24 Assessment Summary Assessment Pt tolerated new exercises well, willing to add oculomotor exercises to HEP. Pt leaving state for a family , unsure of upcoming plans. Agreeable to assess where she is at upon return, will schedule more appointments at that time if needed. Pt understands that if she does not schedule anything within a month, she will be discharged. Physical Therapy Plan Frequency and Duration Frequency of Treatment 2x/Week Plan of Care Start Date 02/10/24 Plan of Care End Date 04/11/24 Therapeutic Interventions Therapeutic Interventions Balance Training,Coordination Training,Gait Training,Home Exercise Program,Manual Therapy,Neuromuscular Re- education,Patient/Caregiver Education,Self-Care/Home Management,Therapeutic Activities,Therapeutic Exercises,Vestibular Rehabilitation Next Visit Focus/Plan Next Note Type Treatment Note Next Visit Plan Further positional testing, balance training, vestibular adaptive/habituation exercises
--- NOTE | 2024-04-28 15:56 | PT.OPDS ---
Current Diagnoses Unsteadiness on feet (02/15/24) Other abnormalities of gait and mobility (02/15/24) Repeated falls (02/15/24) Dizziness and giddiness (02/15/24) Visit Care Team Role Provider Type Nhi Handy MD Primary Care Provider Non-Staff Specialty: Medical Address: [facility] [address], [place], [address] Email: Blue Moreno MD Attending Provider Non-Staff Referring Provider Specialty: Neurology Address: [address] [place] [address], [id number] Email: Visit Number Visit Number 3 Discharge Summary PT-OP-B Current Condition Start: 02/10/24 15:27 Freq: Status: Active Protocol: Document 02/10/24 14:30 DCW (Rec: 02/10/24 15:43 DCW [id number]) Current Condition History of Current Condition Onset Date One year history Current Complaints Dizziness/unsteadiness History of Current Condition Pt is a 78 year old female complaining of a one year history of motion-induced vertigo, imbalance, and light- headedness. Pt reports episodes last 1-2 minutes. Pt traces symptoms back to incident trying to pull a branch down out of a push when an attached larger branch came down on her head. Pt then woke up that night with nausea, vomiting, and a terrible headache. Admits that in the morning, they were getting around to try to get to the local clinic, and in the process she fell down the stairs, sustaining a second head injury and breaking her shoulder. She has had unsteadiness and dizziness since that time, and after getting her shoulder better, was finally able to get seen for her imbalance. Reports she was seen by an ENT, testing was unremarkable, and then saw a neurologist, who recommended vestibular PT. Symptoms are typically provoked by positional changes , head turns, and rolling in bed. Pt denies recent hearing changes, tinnitus, diplopia, dysarthria, discoordination, or decreased mentation/ consciousness. Pt reports symptoms are waxing/waning in nature. Pt denies hx of HTN, hyperlipidemia, diabetes, arrhythmia, seizure, migraines , back/neck problems, CVA, anxiety/panic disorders, depression, or excessive smoking or drinking. Treatment Goals Patient/Caregiver Goals Improve stability, decrease dizziness PT-OP-C Subjective Start: 02/10/24 15:27 Freq: Status: Active Protocol: Document 02/15/24 10:30 DCW (Rec: 02/15/24 11:17 DCW [id number]) OP-PT Subjective Patient Comments Patient Comments It's going okay, its definitely better than it was originally. I feel not nearly as wobbly or unsteady on my feet, so its getting better, but I still find if I try to turn too fast, I start to tip, like my body isn't listening to my brain. PT-OP-O Vestibular Start: 02/10/24 15:27 Freq: Status: Active Protocol: Document 02/10/24 14:30 DCW (Rec: 02/10/24 15:43 DCW [id number]) Vestibular Assessment Auditory Tests Moy Test Within normal limits Rinne Test Negative Air Conduction Results Equal Visual Testing Smooth Pursuits Horizontal WNL Smooth Pursuits Vertical WNL Saccades Horizontal WNL Heave Test Negative Thrust Head Negative DVA (Line Degradation) 0 Spontaneous Nystagmus Negative Positional Testing Ringsted-Hallpike Negative Left,Negative Right Rolling Test Negative Left,Negative Right Vestibular Function Tests CTSIB Position 1 Slight Sway CTSIB Position 2 Mild Sway CTSIB Position 3 Mild Sway CTSIB Position 4 Moderate Sway CTSIB Position 5 Fall Reaction CTSIB Position 6 Fall Reaction PT-OP-T Assessment and Plan Start: 02/10/24 15:27 Freq: Status: Active Protocol: Document 04/28/24 15:55 DCW (Rec: 04/28/24 15:56 DCW [id number]) Physical Therapy Assessment Assessment Summary Assessment At time of last visit, pt in agreement that if she did not call to scheduled any follow- up visits in one month, she would be discharged from vestibular rehabilitation. Pt has now not been seen in more than two months, will be discharged at this time. Physical Therapy Plan Discharge Physical Therapy Discharge Reasons No Longer Attending PT
== END 2024-05-30 11:04 ==
LOC: PHYS 10:30
PROVIDERS: PCP Internal Medicine; Referring Provider Psychiatry & Neurology Neurology; Visit Provider Psychiatry & Neurology Neurology
DX: R42 Dizziness and giddiness (principal); R26.81 Unsteadiness on feet; R29.6 Repeated falls; R26.89 Other abnormalities of gait and mobility
CPT/HCPCS: 97112; 97140; 97162; 97535